=== PATIENT | female | born 1965 | race Caucasian/White ===

== ENCOUNTER 2017-10-21 12:05 | Emergency (ER) | payer BC, SELFPAY | END 2017-10-21 14:03 | disposition home or self-care (01) | PROVIDERS: Emergency Provider Nurse Practitioner Family; Visit Provider Nurse Practitioner Family | DX: M54.5 Low back pain (principal); Z88.0 Allergy status to penicillin; F41.8 Other specified anxiety disorders | CPT/HCPCS: 81003; 87086; 99201 ==

== ENCOUNTER → 2018-09-18 18:36 | Outpatient (CLI) | payer SELFPAY | PROVIDERS: PCP Internal Medicine; Visit Provider Nurse Practitioner Psychiatric/Mental Health | DX: Z79.899 Other long term (current) drug therapy (principal); F33.2 Major depressive disorder, recurrent severe without psychotic features ==

== ENCOUNTER 2022-11-27 15:01 | Emergency (ER) | payer BC, SELFPAY ==
[2022-11-27 15:15] VITALS: BP 121/86; PULSE 80; RESP 20; TEMP 36.8; O2SAT 98; BMI 32.6
--- NOTE | 2022-11-27 15:31 | EXP.UTC ---
Discharge Plan Disposition Patient Disposition: Home, Self-Care Condition: Good Prescriptions Prescriptions: New phenazopyridine [Pyridium] 200 mg tablet 200 mg PO Q8H 2 Days Qty: 6 0RF sulfamethoxazole-trimethoprim [Bactrim DS] 800-160 mg Tablet 1 tab PO BID Qty: 14 0RF No Action alprazolam [Xanax] 0.25 mg tablet 0.25 mg PO QHS PRN pantoprazole [Protonix] 40 mg tablet,delayed release (DR/EC) 40 mg PO DAILY Vyvanse 30 mg capsule 30 mg PO DAILY Qty: 30 0RF venlafaxine [Effexor XR] 150 mg capsule,extended release 24hr 150 mg PO DAILY Qty: 30 1RF Referrals Follow up/Referrals: Miladis Guillaume [Primary Care Provider] - See instructions Activity Restrictions/Add. Instructions Additional Instructions/Restrictions: Drink plenty of fluids. Take tylenol or ibuprofen for pain or fever. Take the medications as directed. Follow up with your regular doctor. GO TO THE ER FOR ANY WORSENING SYMPTOMS The pyridium will make your urine turn orange, this is an expected side effect. It will stain your clothes if it comes into contact with them. We will culture the urine. That will tell what bacteria is causing your infection and which antibiotics will treat it best. Sometimes the first antibiotic we prescribe turns out to not work against different bacteria. So, make sure you follow up within 3 days if you are not getting better. Clinical Impressions Clinical Impression: UTI (urinary tract infection), Acute viral syndrome Stand Alone Forms Stand Alone Forms: Work/School Release Instructions Patient Instructions: Urine Culture, DI for Urinary Tract Infection (UTI), Phenazopyridine Discharge ED Provider: Zak Rodrigez [facility] General Stated complaint: Weakness,Earache,Diarrhea Mode of Arrival: Ambulatory Source of Information: Patient Limitations: No Limitations Time Seen by Provider: 11/27/22 15:25 Description of Symptoms (Recalled from Triage Doc. by RN): nasuea, diarrhea, pressure, fatigue, body aches. She also states that she has had urinary frequency and dysuria. HEENT Symptoms (Recalled from RN notes): Yes Resp Symptoms (Recalled from RN notes): No Skin Symptoms (Recalled from RN notes): No MS Symptoms (Recalled from RN notes): No Functional Status (Recalled from RN notes): n/a History of Present Illness Provider Complaint: She states that for the past 3 days she has had sinus congestion, ear pain, and a cough. Related Data Home Medications Medication Instructions Recorded Confirmed alprazolam 0.25 mg tablet (Xanax) 0.25 mg PO QHS PRN 12/11/19 08/25/22 pantoprazole 40 mg tablet,delayed 40 mg PO DAILY 12/11/19 08/25/22 release (Protonix) Previous Rx's Medication Instructions Recorded lisdexamfetamine 30 mg capsule 30 mg PO DAILY #30 caps 10/27/22 (Vyvanse) venlafaxine 150 mg 150 mg PO DAILY #30 caps 10/27/22 capsule,extended release 24 hr (Effexor XR) phenazopyridine 200 mg tablet 200 mg PO Q8H 2 days #6 tabs 11/27/22 (Pyridium) sulfamethoxazole 800 1 tab PO BID #14 tabs 11/27/22 mg-trimethoprim 160 mg tablet (Bactrim DS) Allergies Allergy/AdvReac Type Severity Reaction Status Date / Time erythromycin base Allergy Intermediate Verified 11/27/22 15:24 [ERYTHROMYCIN BASE] Penicillins [PENICILLINS] Allergy Intermediate Verified 11/27/22 15:24 Worker's Comp Is this a Worker's Comp case?: No [facility] Disclaimer: The information contained in this section may have been updated after the patient was seen, as this information can be updated by other users. Medical History (Updated 11/27/22 @ 16:00 by Zak Rodrigez APRN) Attention deficit disorder (ADD) in adult Major depressive disorder Social History (Updated 08/25/22 @ 10:02 by Romana Holloway APRN) Smoking Status: Current every day smoker tobacco type: cigarettes packs per day: 1 alcohol intake: current substance use type: denies use current occupation
[2022-11-27 15:44] LABS: Apearance,Urine Clear (Clear); Bilirubin,Urine Negative (Negative); Blood, Urine Negative (Negative); Color,Urine Yellow (Yellow); Glucose,Urine (UA) Negative (Negative); Ketones,Urine Negative (Negative); PH,Urine 6.5 (5.0-8.5); Protein,Urine Negative (Negative); UTC Leukocyte Esterase,Urine Trace (Negative); UTC Nitrate,Urine Negative (Negative); Urobilinogen,Urine 0.2 EU/dl (0.2)
[2022-11-27 16:15] VITALS: BP 121/86; PULSE 80; RESP 20; TEMP 36.8; O2SAT 98
[2022-11-27 19:04] LABS: UTC Strep Screen (Rapid) Negative (Negative)
== END 2022-11-27 16:14 | disposition home or self-care (01) ==
PROVIDERS: Emergency Provider Nurse Practitioner Family; PCP Internal Medicine
DX: N39.0 Urinary tract infection, site not specified (principal); B34.9 Viral infection, unspecified
CPT/HCPCS: 81003; 87086; 87880; 99212; 99214; C9803; G0463; U0003; U0005

== ENCOUNTER 2023-02-11 11:43 | Emergency (ER) | payer BC, SELFPAY ==
[2023-02-11 11:45] VITALS: BP 137/77; PULSE 69; RESP 18; TEMP 36.8; O2SAT 98; BMI 34.4
--- NOTE | 2023-02-11 12:05 | EXP.UTC ---
Discharge Plan Disposition Patient Disposition: Home, Self-Care Condition: Good Prescriptions Prescriptions: New azithromycin [Zithromax Z-Maxi] 250 mg tablet See Rx Instructions .ROUTE .COMPLEX Qty: 6 0RF Rx Instructions: For 250 mg dose pack: take 500 mg today (day 1), then 250 mg for 4 days (days 2-5). Pt states that she has no allergy issues with Z-maxi. No Action alprazolam [Xanax] 0.25 mg tablet 0.25 mg PO QHS PRN (Reason: Anxiety) pantoprazole [Protonix] 40 mg tablet,delayed release (DR/EC) 40 mg PO DAILY venlafaxine [Effexor XR] 150 mg capsule,extended release 24hr 150 mg PO DAILY Vyvanse 30 mg capsule 30 mg PO DAILY Referrals Follow up/Referrals: Provider,Referral, MD [Primary Care Provider] - See instructions Clinical Impressions Clinical Impression: Strep pharyngitis Instructions Patient Instructions: DI for Strep Throat Discharge ED Provider: Georgiana Wei [facility] General Stated complaint: Congestion, drainage, cough, sore throat Mode of Arrival: Ambulatory Source of Information: Patient Limitations: No Limitations Time Seen by Provider: 02/11/23 11:54 Description of Symptoms (Recalled from Triage Doc. by RN): PATIENT C/O SORE THROAT, CONGESTION, HEADACHE, EAR PAIN AND FACIAL PRESSURE X 2 DAYS HEENT Symptoms (Recalled from RN notes): Yes Resp Symptoms (Recalled from RN notes): No Skin Symptoms (Recalled from RN notes): No MS Symptoms (Recalled from RN notes): No Functional Status (Recalled from RN notes): WNL History of Present Illness Provider Complaint: Pt reports that she was cleaning things out in her mother's home and the dust stirred up her sinus' . She reports that she has had congestion, sore throat, earache, and facial pressure since last night. She states that she took some OTC medication but this did not help. She states that she smokes and feels that this has made her symptoms worsen. She reports wheezing on occassion. Related Data Home Medications Medication Instructions Recorded Confirmed alprazolam 0.25 mg tablet (Xanax) 0.25 mg PO QHS PRN Anxiety 12/11/19 02/11/23 pantoprazole 40 mg tablet,delayed 40 mg PO DAILY Acid reflux 12/11/19 02/11/23 release (Protonix) lisdexamfetamine 30 mg capsule 30 mg PO DAILY ADHD 02/11/23 02/11/23 (Vyvanse) venlafaxine 150 mg 150 mg PO DAILY Anxiety 02/11/23 02/11/23 capsule,extended release 24 hr (Effexor XR) Previous Rx's Medication Instructions Recorded azithromycin 250 mg tablet See Rx Instructions PO .COMPLEX #6 02/11/23 (Zithromax Z-Maxi) tabs Allergies Allergy/AdvReac Type Severity Reaction Status Date / Time erythromycin base Allergy Intermediate Verified 11/27/22 15:24 [ERYTHROMYCIN BASE] Penicillins [PENICILLINS] Allergy Intermediate Verified 11/27/22 15:24 Worker's Comp Is this a Worker's Comp case?: No [facility] Disclaimer: The information contained in this section may have been updated after the patient was seen, as this information can be updated by other users. Medical History (Updated 02/11/23 @ 12:39 by Georgiana Wei APRN) Attention deficit disorder (ADD) in adult Major depressive disorder Social History (Updated 08/25/22 @ 10:02 by Romana Holloway APRN) Smoking Status: Current every day smoker tobacco type: cigarettes packs per day: 1 alcohol intake: current substance use type: denies use current occupational status: employed Travel in the last 8 weeks: None number of children: 2 ROS Obtained: Yes All systems reviewed & no additional complaints except as documented Constitutional Constitutional: Reports system reviewed and no additional complaints, except as documented, Reports headache(s) and Reports malaise Eyes Eyes: Reports system reviewed and no additional complaints, except as documented ENT Ears, Nose, Mouth, and Throat: Reports system reviewed and no additional complaints, except as documented, Reports otalgia, R
[2023-02-11 12:15] LABS: UTC Strep Screen (Rapid) Positive (Negative)
[2023-02-11 12:16] VITALS: BP 137/77; PULSE 69; RESP 18; TEMP 36.8; O2SAT 98
== END 2023-02-11 12:44 | disposition home or self-care (01) ==
PROVIDERS: Emergency Provider Nurse Practitioner Family
DX: J02.0 Streptococcal pharyngitis (principal); F17.210 Nicotine dependence, cigarettes, uncomplicated
CPT/HCPCS: 87880; 99212; 99214; G0463

== ENCOUNTER 2023-02-13 12:15 | Emergency (ER) | payer BC, SELFPAY ==
[2023-02-13 12:40] VITALS: BP 137/84; PULSE 92; RESP 20; TEMP 36.7; O2SAT 96; BMI 31.3
--- NOTE | 2023-02-13 13:03 | EXP.UTC ---
Discharge Plan Disposition Patient Disposition: Home, Self-Care Condition: Good Prescriptions Prescriptions: New doxycycline hyclate [doxycycline hyclate] 100 mg capsule 100 mg PO Q12 10 Days Qty: 20 0RF prednisone [prednisone] 20 mg tablet 20 mg PO BID 5 Days Qty: 10 0RF benzonatate [benzonatate] 100 mg capsule 100 mg PO TIDP PRN (Reason: Cough) Qty: 30 0RF No Action alprazolam [Xanax] 0.25 mg tablet 0.25 mg PO QHS PRN (Reason: Anxiety) pantoprazole [Protonix] 40 mg tablet,delayed release (DR/EC) 40 mg PO DAILY venlafaxine [Effexor XR] 150 mg capsule,extended release 24hr 150 mg PO DAILY Vyvanse 30 mg capsule 30 mg PO DAILY azithromycin [Zithromax Z-Maix] 250 mg tablet See Rx Instructions .ROUTE .COMPLEX Rx Instructions: For 250 mg dose pack: take 500 mg today (day 1), then 250 mg for 4 days (days 2-5). Pt states that she has no allergy issues with Z-maxi. Referrals Follow up/Referrals: Panda Araiza [Primary Care Provider] - See instructions Activity Restrictions/Add. Instructions Additional Instructions/Restrictions: Drink plenty of fluids. Take tylenol or ibuprofen for pain or fever. Take the medications as directed. Follow up with your regular doctor. GO TO THE ER FOR ANY WORSENING SYMPTOMS Don't start the oral steroids until tomorrow, since you had the shot here today. Clinical Impressions Clinical Impression: Sinusitis, Strep throat, Bronchitis Instructions Patient Instructions: Sinusitis, DI for Sinusitis Discharge ED Provider: Zak Rodrigez [facility] General Stated complaint: congestion,cough Time Seen by Provider: 02/13/23 13:03 History of Present Illness Provider Complaint: She states that for the past 2 days she has had chest congestion, sinus congestion, productive cough with yellowish sputum and she has felt bad. Related Data Home Medications Medication Instructions Recorded Confirmed alprazolam 0.25 mg tablet (Xanax) 0.25 mg PO QHS PRN Anxiety 12/11/19 02/13/23 pantoprazole 40 mg tablet,delayed 40 mg PO DAILY Acid reflux 12/11/19 02/13/23 release (Protonix) lisdexamfetamine 30 mg capsule 30 mg PO DAILY ADHD 02/11/23 02/13/23 (Vyvanse) venlafaxine 150 mg 150 mg PO DAILY Anxiety 02/11/23 02/13/23 capsule,extended release 24 hr (Effexor XR) azithromycin 250 mg tablet See Rx Instructions .Route 02/13/23 02/13/23 (Zithromax Z-Maxi) .COMPLEX strep Previous Rx's Medication Instructions Recorded benzonatate 100 mg capsule 100 mg PO TIDP PRN Cough #30 caps 02/13/23 doxycycline hyclate 100 mg capsule 100 mg PO Q12 10 days #20 caps 02/13/23 prednisone 20 mg tablet 20 mg PO BID 5 days #10 tabs 02/13/23 Allergies Allergy/AdvReac Type Severity Reaction Status Date / Time erythromycin base Allergy Intermediate Verified 02/13/23 13:10 [ERYTHROMYCIN BASE] Penicillins [PENICILLINS] Allergy Intermediate Verified 02/13/23 13:10 [facility] Disclaimer: The information contained in this section may have been updated after the patient was seen, as this information can be updated by other users. Medical History Attention deficit disorder (ADD) in adult Major depressive disorder Social History Smoking Status: Current every day smoker tobacco type: cigarettes packs per day: 1 alcohol intake: current substance use type: denies use current occupational status: employed Travel in the last 8 weeks: None number of children: 2 ROS Obtained: Yes All systems reviewed & no additional complaints except as documented Constitutional Constitutional: Denies chills, Reports fever(s) and Reports poor appetite Eyes Eyes: Denies eye discharge ENT Ears, Nose, Mouth, and Throat: Denies ear discharge, Reports otalgia, Denies hearing loss, Denies sinus pain and Reports sore throat Cardiovascular Car
--- NOTE | 2023-02-13 13:52 | PC.NURSE ---
Spoke with pt about rocephin shot being a associated to PCN. She has allergy to PCN. She states that she has taken before and has not issues.
[2023-02-13 14:04] VITALS: BP 137/84; PULSE 92; RESP 20; TEMP 36.7; O2SAT 96
== END 2023-02-13 14:04 | disposition home or self-care (01) ==
PROVIDERS: Emergency Provider Nurse Practitioner Family; PCP Family Medicine
DX: J02.0 Streptococcal pharyngitis (principal); J20.9 Acute bronchitis, unspecified; J01.90 Acute sinusitis, unspecified; F17.210 Nicotine dependence, cigarettes, uncomplicated
CPT/HCPCS: 96372; 99212; 99214; G0463; J0696

== ENCOUNTER 2023-09-02 16:54 | Emergency (ER) | payer BC, SELFPAY ==
[2023-09-02 17:10] VITALS: BP 130/90; PULSE 115; RESP 18; TEMP 36.7; O2SAT 96; BMI 30.6
[2023-09-02 17:13] LABS: Apearance,Urine Cloudy (Clear); Color,Urine Dark Yellow (Yellow); PH,Urine 5.5 (5.0-8.5); Protein,Urine 3+ (Negative)
[2023-09-02 17:14] LABS: Bilirubin,Urine 1+ (Negative); Blood, Urine Trace (Negative); Glucose,Urine (UA) Negative (Negative); Ketones,Urine TRACE (Negative); UTC Leukocyte Esterase,Urine Negative (Negative); UTC Nitrate,Urine Negative (Negative); Urobilinogen,Urine 0.2 EU/dl (0.2)
--- NOTE | 2023-09-02 17:30 | EXP.UTC ---
Discharge Plan Disposition Patient Disposition: Home, Self-Care Condition: Good Prescriptions Prescriptions: New cephalexin [cephalexin] 500 mg tablet 500 mg PO BID 7 Days Qty: 14 0RF No Action alprazolam [Xanax] 0.25 mg tablet 0.25 mg PO QHS PRN (Reason: Anxiety) pantoprazole [Protonix] 40 mg tablet,delayed release (DR/EC) 40 mg PO DAILY venlafaxine [Effexor XR] 150 mg capsule,extended release 24hr 150 mg PO DAILY Qty: 90 0RF lisdexamfetamine [Vyvanse] 30 mg capsule 30 mg PO DAILY Qty: 30 0RF Referrals Follow up/Referrals: Miladis Guillaume [Primary Care Provider] - See instructions Activity Restrictions/Add. Instructions Additional Instructions/Restrictions: Increase fluids, water and not soda or tea. Can drink cranberry juice or cranberry extract. Wipe front to back Wear cotton underwear Empty bladder after intercourse Start antibiotics immediately and make sure you take the full course although you may start to see improvement over the next 48 hours. You can eat yogurt or take probiotics to decrease diarrhea or yeast infection caused by the antibiotic Be sure to follow-up anytime for new or worsening symptoms in 48 hours for wound urine culture results be sure to let you PCP no recent urine for culture so they can request records and ensure that you have appropriate antibiotic if you are not getting better or getting worse. If symptoms worsen or do not improve return or be seen in the ER. Follow-up with primary care this week. Clinical Impressions Clinical Impression: Upper respiratory disease UTI (urinary tract infection) Qualifiers: Urinary tract infection type: acute cystitis Hematuria presence: with hematuria Qualified Code(s): N30.01 - Acute cystitis with hematuria Instructions Patient Instructions: DI for Urinary Tract Infection (UTI), DI for Viral Upper Respiratory Infection -- Adult Discharge ED Provider: Vimal ([facility])Frida [facility] HPI General Stated complaint: poss UTI, ear ache Mode of Arrival: Ambulatory Source of Information: Patient Limitations: No Limitations Time Seen by Provider: 09/02/23 17:30 Description of Symptoms (Recalled from Triage Doc. by RN): ear infection, diarrhea, LUO, fatigue, no appetite, urgency to urinate, and burning with urination HEENT Symptoms (Recalled from RN notes): Yes Resp Symptoms (Recalled from RN notes): No Skin Symptoms (Recalled from RN notes): No MS Symptoms (Recalled from RN notes): No Functional Status (Recalled from RN notes): n/a History of Present Illness Provider Complaint: 58 yr old female presents for c/o of ear infection, diarrhea, LUO, fatigue, no appetite, urgency to urinate, and burning with urination Related Data Home Medications Medication Instructions Recorded Confirmed alprazolam 0.25 mg tablet (Xanax) 0.25 mg PO QHS PRN Anxiety 12/11/19 09/02/23 pantoprazole 40 mg tablet,delayed 40 mg PO DAILY Acid reflux 12/11/19 09/02/23 release (Protonix) Previous Rx's Medication Instructions Recorded venlafaxine 150 mg 150 mg PO DAILY Anxiety #90 caps 06/01/23 capsule,extended release 24 hr (Effexor XR) lisdexamfetamine 30 mg capsule 30 mg PO DAILY ADHD #30 caps 07/13/23 (Vyvanse) cephalexin 500 mg tablet 500 mg PO BID 7 days #14 tabs 09/02/23 Allergies Allergy/AdvReac Type Severity Reaction Status Date / Time erythromycin base Allergy Intermediate Verified 09/02/23 17:23 [ERYTHROMYCIN BASE] Penicillins [PENICILLINS] Allergy Intermediate Verified 09/02/23 17:23 Worker's Comp Is this a Worker's Comp case?: No [facility] Disclaimer: The information contained in this section may have been updated after the patient was seen, as this information can be updated by other users. Medical History , [employer]) Attention deficit disorder (ADD) in adult Major depressive disorder Social History , A
[2023-09-02 17:41] LABS: UTC Strep Screen (Rapid) Negative (Negative)
[2023-09-02 17:42] LABS: UTC Influenza A Antigen Negative (Negative); UTC Influenza B Antigen Negative (Negative)
[2023-09-02 17:43] VITALS: BP 130/90; PULSE 115; RESP 18; TEMP 36.7; O2SAT 96
== END 2023-09-02 17:43 | disposition home or self-care (01) ==
PROVIDERS: Emergency Provider Nurse Practitioner Family; PCP Internal Medicine
DX: N30.01 Acute cystitis with hematuria (principal); J06.9 Acute upper respiratory infection, unspecified; B34.9 Viral infection, unspecified; H92.03 Otalgia, bilateral; R19.7 Diarrhea, unspecified; R51.9 Headache, unspecified; F17.210 Nicotine dependence, cigarettes, uncomplicated; F90.9 Attention-deficit hyperactivity disorder, unspecified type; F33.9 Major depressive disorder, recurrent, unspecified
CPT/HCPCS: 81003; 87086; 87635; 87804; 87880; 99212; 99214; G0463

== ENCOUNTER 2024-06-23 08:59 | Emergency (ER) | payer BC, SELFPAY ==
[2024-06-23 09:19] VITALS: BP 124/81; PULSE 94; RESP 16; TEMP 36.6; O2SAT 97; BMI 32.1
[2024-06-23 09:23] LABS: Apearance,Urine Clear (Clear); Bilirubin,Urine Negative (Negative); Blood, Urine Trace (Negative); Color,Urine Yellow (Yellow); Glucose,Urine (UA) Negative (Negative); Ketones,Urine Negative (Negative); Protein,Urine Negative (Negative); Urobilinogen,Urine 0.2 EU/dl (0.2)
[2024-06-23 09:24] LABS: UTC Leukocyte Esterase,Urine Negative (Negative); UTC Nitrate,Urine Negative (Negative)
--- NOTE | 2024-06-23 09:55 | EXP.UTC ---
Discharge Plan Disposition Patient Disposition: Home, Self-Care Condition: Good Prescriptions Prescriptions: New nystatin 100,000 unit/gram cream 1 applic topical BID 7 Days Qty: 30 0RF phenazopyridine [Pyridium] 200 mg tablet 200 mg PO Q8H 2 Days Qty: 6 0RF nitrofurantoin monohyd/m-cryst [Macrobid] 100 mg Capsule 100 mg PO BID Qty: 10 0RF Rx Instructions: must administer with a meal/food No Action pantoprazole [Protonix] 40 mg tablet,delayed release (DR/EC) 40 mg PO DAILY venlafaxine [Effexor XR] 150 mg capsule,extended release 24hr 150 mg PO DAILY Qty: 90 0RF alprazolam [Xanax] 0.25 mg tablet 0.25 mg PO QHS PRN (Reason: Anxiety) Qty: 30 0RF lisdexamfetamine [Vyvanse] 30 mg capsule 30 mg PO DAILY Qty: 30 0RF Referrals Follow up/Referrals: Miladis Guillaume [Primary Care Provider] - See instructions Activity Restrictions/Add. Instructions Additional Instructions/Restrictions: Drink plenty of fluids. Take tylenol or ibuprofen for pain or fever. Take the medications as directed. Follow up with your regular doctor. GO TO THE ER FOR ANY WORSENING SYMPTOMS The pyridium will make your urine turn orange, this is an expected side effect. It will stain your clothes if it comes into contact with them. We will culture the urine. That will tell what bacteria is causing your infection and which antibiotics will treat it best. Sometimes the first antibiotic we prescribe turns out to not work against different bacteria. So, make sure you follow up within 3 days if you are not getting better. Clinical Impressions Clinical Impression: UTI (urinary tract infection) Qualifiers: Urinary tract infection type: acute cystitis Hematuria presence: with hematuria Qualified Code(s): N30.01 - Acute cystitis with hematuria Instructions Patient Instructions: Urine Culture, DI for Urinary Tract Infection (UTI), Phenazopyridine, Ceftriaxone Injection Print Language Print Language: Wolof Discharge ED Provider: Zak Rodrigez [facility] [place] General Stated complaint: Pain/frequent urination Mode of Arrival: Ambulatory Source of Information: Patient Limitations: No Limitations Time Seen by Provider: 06/23/24 09:55 Description of Symptoms (Recalled from Triage Doc. by RN): Pt reports burning with urination and pain with wiping after urination. States symptoms began 06/20/24 HEENT Symptoms (Recalled from RN notes): No Resp Symptoms (Recalled from RN notes): No Skin Symptoms (Recalled from RN notes): No MS Symptoms (Recalled from RN notes): No Functional Status (Recalled from RN notes): n/a History of Present Illness Provider Complaint: She states that for the past 2 days she has had low back pain, dysuria, and urinary frequency. Related Data Home Medications ?Medication ?Instructions ?Recorded ?Confirmed pantoprazole 40 mg tablet,delayed 40 mg PO DAILY Acid reflux 12/11/19 05/13/24 release (Protonix) Previous Rx's ?Medication ?Instructions ?Recorded alprazolam 0.25 mg tablet (Xanax) 0.25 mg PO QHS PRN Anxiety #30 tabs 04/15/24 venlafaxine 150 mg 150 mg PO DAILY Anxiety #90 caps 05/13/24 capsule,extended release 24 hr (Effexor XR) lisdexamfetamine 30 mg capsule 30 mg PO DAILY ADHD #30 caps 06/11/24 (Vyvanse) nitrofurantoin 100 mg PO BID #10 caps 06/23/24 monohydrate/macrocrystals 100 mg capsule (Macrobid) nystatin 100,000 unit/gram topical 1 applic topical BID 7 days #30 06/23/24 cream grams phenazopyridine 200 mg tablet 200 mg PO Q8H 2 days #6 tabs 06/23/24 (Pyridium) Allergies Allergy/AdvReac Type Severity Reaction Status Date / Time erythromycin base Allergy Intermediate Verified 05/13/24 09:41 [ERYTHROMYCIN BASE] Penicillins [PENICILLINS] Allergy Intermediate Verified 05/13/24 09:41 Worker's Comp Is this a Worker's Comp case?: No [facility] Disclaimer: The information contained in this section may have been updated after the patient
[2024-06-23 10:28] VITALS: BP 124/81; PULSE 94; RESP 16; TEMP 36.6; O2SAT 97
== END 2024-06-23 10:28 | disposition home or self-care (01) ==
PROVIDERS: Emergency Provider Nurse Practitioner Family; PCP Internal Medicine
DX: N30.01 Acute cystitis with hematuria (principal); M54.59 Other low back pain; R30.0 Dysuria; R35.0 Frequency of micturition
CPT/HCPCS: 81003; 87086; 96372; 99212; 99214; G0463; J0696

== ENCOUNTER 2025-01-01 15:24 | Outpatient (CLI) | payer BC, SELFPAY ==
[2025-01-01 15:44] LABS: Basophils % 0.3 % (0.1-2.0); Hematocrit 43.7 % (37.0-47.0); Hemoglobin 14.5 g/dL (12.2-16.2); Lymphocytes # 1.3 K/mm3 (0.7-4.5); Lymphocytes % 10.8 % (10-50); Mean Corpuscular HGB Conc 33.2 g/dL (31.8-35.4); Mean Corpuscular Hemoglobin 30.4 pg (27.0-31.2); Mean Corpuscular Volume 91.6 fl (81-99); Mean Platelet Volume 9.8 fl (7.4-10.4); Monocytes # 0.1 K/mm3 (0.1-1.0); Monocytes % 0.9 % (1.7-9.3); Neutrophils # 10.2 K/mm3 (1.8-7.8); Neutrophils % 87.4 % (37.0-80.0); Platelet Count 366 K/mm3 (142-424); Red Blood Count 4.77 M/mm3 (4.20-5.40); Red Cell Distribution Width 14.2 % (11.5-17.5); White Blood Count 11.7 K/mm3 (4.8-10.8)
[2025-01-01 16:40] LABS: Anion Gap 13.4 mEq/L (5-15); Blood Urea Nitrogen 13 mg/dl (7-17); Calcium 9.7 mg/dl (8.4-10.2); Carbon Dioxide 23 mmol/L (22.0-30.0); Chloride 108 mmol/L (98-107); Estimated Glomerular Filt Rate 127 ml/min (>60); GFR (African American) 154 ML/MIN (>60); Glucose 131 mg/dl (74-100); Potassium 4.4 mmoL/L (3.5-5.1); Sodium 140 mmol/L (136-145)
== END 2025-01-01 23:59 | disposition home or self-care (01) ==
LOC: LAB 15:25
PROVIDERS: PCP Nurse Practitioner Family; Visit Provider Nurse Practitioner
DX: G93.39 Other post infection and related fatigue syndromes (principal)
CPT/HCPCS: 36415; 80048; 85025

== ENCOUNTER 2025-07-15 08:00 | Outpatient (CLI) | payer OTHER, SELFPAY ==
--- NOTE | 2025-07-15 08:03 | MM_ITS ---
PROCEDURE INFORMATION: Exam: MG Bilateral Screening 3D Mammography Exam date and time: 07/15/2025 8:05 AM Age: 60 years old Clinical indication: Screening. No family history of breast cancer. TECHNIQUE: Imaging protocol: Bilateral Screening tomosynthesis and 2D mammography including computer-aided detection (CAD) when performed. COMPARISON: 1. MG SCN DIG BREAST TOMOSYN RICARDO 12/22/2023 4:42 PM 2. MG Stereo Biopsy, RCC 09/29/2022 10:10 AM 3. MG ALYSA DIAG UNILAT RT 2D 3D-FCH 09/08/2022 1:57 PM 4. MG MAMM SCREENING 2D 3D 09/01/2022 3:32 PM MG MAMM SCREENING 2D 3D 08/30/2019 FINDINGS: MAMMOGRAPHY: Breast composition: The breasts are heterogeneously dense, which may obscure small masses. Mass: No suspicious mass. Architectural distortion: None. Calcifications: No suspicious calcifications. Asymmetric density: None. Skin thickening: None. Axillary adenopathy: None. IMPRESSION: No mammographic evidence of malignancy. Annual screening is recommended unless otherwise clinically indicated. ASSESSMENT: BI-RADS Category 1: Negative.
--- OUTSIDE RECORDS SUMMARY | 2025-07-15 08:03 | XMS_ITS | Clinical Summary ---
Author Organization [facility] OD Address [facility] [place] [id number] Phone Care Team Providers Care Senior Consulting Manager Name Role Phone Unavailable Primary Care Provider Unavailabl e Allergies Active Allergy Reactions Criticality Noted Date Comments Erythromycin Hives,Rash Low 04/09/2025 Penicillins Hives,Itching,Rash Low 07/20/2008 Product containing penicillin (product) Medications ALPRAZolam (XANAX) 0.25 mg Oral Tablet TAKE 1 TABLET BY MOUTH EVERY DAY AT BEDTIME NEEDED FOR ANXIETY Active albuterol (VENTOLIN HFA) 90 mcg/actuation Inhl HFA Aerosol Inhaler INHALE 1 PUFF BY MOUTH NEEDED Active clobetasoL (TEMOVATE) 0.05 % Top Ointment APPLY ONE (1) APPLICATION TWICE A DAY BY TOPICAL ROUTE DIRECTED 5 Active clotrimazole-be tamethasone (LOTRISONE) Top Cream APPLY CREAM TOPICALLY TO AFFECTED AREA AND SURROUNDING AREAS TWICE DAILY IN THE MORNING AND IN THE EVENING FOR 2 WEEKS Active ergocalciferol (DRISDOL) 1,250 mcg (50,000 unit) Oral Capsule Take 50,000 Units by mouth once a week. 5 Active PREMARIN Vagl Cream INSERT ONE (1) G EVERY 72 HOURS BY VAGINAL ROUTE Active fluconazole (DIFLUCAN) 150 mg Oral Tablet TAKE ONE (1) TABLET EVERY WEEK BY ORAL ROUTE DIRECTED FOR 28 DAYS. Active fluticasone propionate (FLOVENT) 44 mcg/actuation Inhl HFA Aerosol Inhaler Inhale 2 puffs twice a day by inhalation route for 30 days. Active Lisdexamfetamin e 40 mg Oral Capsule Take 1 Capsule by mouth daily. Active pantoprazole (PROTONIX) 40 mg Oral Tablet, Delayed Release (E.C.) Take 40 mg by mouth daily. Active venlafaxine (EFFEXOR-XR) 150 mg Oral Capsule, Sust. Release 24 hr TAKE 1 CAPSULE BY MOUTH ONCE DAILY FOR ANXIETY 9 Active Social History Tobacco Use Types Packs/Day Years Used Date Smoking Tobacco: Never Assessed Comments Unknown Sex and Gender Information Value Date Recorded Sex Assigned at Not on file Legal Sex Female 8:19 AM EDT Gender Identity Not on file Sexual Orientation Not on file Plan of Treatment Health Maintenance Due Date Last Done Comments Annual Wellness Exam 1970 DTaP/TDaP/Td (1 - Tdap) 1986 Hepatitis B Vaccine (1 of 3 - 19+ 3-dose series) 1986 Cervical Cancer Screening 1988 Pap Smear 1988 HPV/Pap Cotest 1997 Breast Cancer Screening 2007 Cologuard 2012 Colon Cancer Screening 2012 Colonoscopy 2012 FIT 2012 Sigmoidoscopy 2012 Virtual Colonography 2012 Pneumococcal Vaccine 50+ (1 of 1 - PCV) 2017 Zoster (1 of 2) 2017 COVID-19 Vaccine (3 - 2024-2 6 season) 2025 04/13/2021, 03/16/2021 Influenza Vaccine (#1) 2025 08/13/2021 Meningococcal B Vaccine Aged Out No l onger eligible based on patient's age to complete this topic [place] [address] [address] [employer] [place] [address] [address] [employer] on file [employer] [place] * Guarantor: BENY TY Account Type Relation to Patient Date of Phone Billing Address [place] [employer] 1965 [address] [place] [id number] [employer] [facility] [place]
--- OUTSIDE RECORDS SUMMARY | 2025-07-15 08:03 | XMS_ITS | Clinical Summary ---
Author Organization [facility] Address [address] [place] [id number] Care Team Providers Care Express Clerk Name Role Phone Miladis Guillaume MD Primary Care Provider + Allergies Active Allergy Reactions Criticality Noted Date Comments Penicillins Rash Low 05/31/2019 Medications buPROPion XL (WELLBUTRIN XL) 300 MG 24 hr tablet Take 300 mg by mouth Daily. 5 9 Active HM ALLERGY RELIEF/NASAL DECONG 10-240 MG per 24 hr tablet Take 1 tablet by mouth Daily. 5 9 Active phentermine (ADIPEX-P) 37.5 MG tablet Take 37.5 mg by mouth Daily. 0 9 Active venlafaxine XR (EFFEXOR-XR) 150 MG 24 hr capsule TAKE (1) CAPSULE BY MOUTH ONCE A DAY. 5 9 Active predniSONE (DELTASONE) 10 MG tabletIndications :Acute recurrent pansinusitis Take 2 tabs po now, then take 1 tab po daily until gone 5 tablet 9 Active Family History Medical History Relation Name Comments Heart disease Father Lung disease Father Cancer Mother colon Parkinsonism Mother Relation Name Status Comments Father Mother Alive Social History Tobacco Use Types Packs/Day Years Used Date Smoking Tobacco: Never Alcohol Use Standard Drinks/Week Comments Defer 0 (1 standard drink = 0.6 oz pur e alcohol) Abuse Screen Answer Date Recorded Unsafe at Home or Work/School Not on file Feels Threatened by Someone? Not on file 09/2023 Does Anyone Keep You from Co ntacting Others or Doint Things Outside the Home? Not on file 08/10/2023 Physical Sign of Abuse Present Not on file 1 Housing Stability Answer Date Recorded Current Living Arrangements Not on file 07/30 Potentially Unsafe Housing Conditions Not on sada e 08/10/2023 Family and Community Support Answer Tomy e Recorded Help with Day-to-Day Activities Not on file 08/10/2023 Lonely or Isolated Not on file 08/10/2023 Employment Answer Date Recorded Do you want help finding or keeping work or a abdulkadir b? Not on file 08/10/2023 Disabilities Answer Date Recorded Concentrating, Remembering, or Making Decisions Difficulty Not on file 08/10/2023 Doing Errands Independently Difficulty Not on fi le 08/10/2023 Education Answer Date Recorded Help with school or training? Not on file Preferred Language Not on file 08/10/2023 Comments No Sex and Gender Information Value Date Recorded Sex Assigned at Not on file Legal Sex Female 2:45 PM EDT Gender Identity Not on file Sexual Orientation Not on file Last Filed Vital Signs Vital Sign Reading Time Taken Comments Blood Pressure 118/76 05/31/2019 2:59 PM EDT Pulse 100 05/31/2019 2:59 PM EDT Temperature 36.3 C (97.3 F) 05/31/2019 2:59 PM EDT Respiratory Rate 20 05/31/2019 2:59 PM EDT Oxygen Saturation 96% 05/31/2019 2:59 PM EDT Inhaled Oxygen Concentration - - Weight 96.4 kg (212 lb 9.6 oz) 05/31/2019 2:59 P M EDT Height 172.7 cm (5' 8 ) 05/31/2019 2:59 PM EDT Body Mass Index 32.33 05/31/2019 2:59 PM EDT Plan of Treatment Health Maintenance Due Date Last Done Comments Annual Gynecologic Pelvic and Breast Exam 1965 TDAP/TD VACCINES (1 - Tdap) 1986 MAMMOGRAM 2007 COLOGUARD 2012 COLON CANCER SCREENING 5 YEAR SIGMOIDOSCOPY 2012 COLONOSCOPY 2012 [address] CANCER SCREENING 2012 CT COLONOGRAPHY 2012 FECAL OCCULT BLOOD TEST 2012 FIT Testing (1 year) 2012 Pneumococcal Vaccine 50+ (1 of 1 - PCV) 2017 ZOSTER VACCINE (1 of 2) 2017 ANNUAL PHYSICAL 05/31/2019 HEPATITIS C SCREENING 05/31/2019 COVID-19 Vaccine ( season) 2025 INFLUENZA VACCINE 07/30/2025 Insurance [facility] H[facility] Care Teams Express Clerk Relationship Specialty Start Date End Date Miladis Guillaume MD [address] [place] [address] PCP - General Internal Medicine 05/31/19
--- OUTSIDE RECORDS SUMMARY | 2025-07-15 08:04 | XMS_ITS | Referral Summary ---
Author Organization [employer] ([place], [place], [place], [place]) Address [address] [place] [address] Care Team Providers Care Newborn Photographer Name Role Phone Unavailable Primary Care Provider Unavailabl e Social History Tobacco Use Types Packs/Day Years Used Date Smoking Tobacco: Never Assessed Comments Unknown Sex and Gender Information Value Date Recorded Sex Assigned at Not on file Legal Sex Female 6:05 PM CDT Gender Identity Not on file Sexual Orientation Not on file Plan of Treatment Not on file
--- OUTSIDE RECORDS SUMMARY | 2025-07-15 08:04 | XMS_ITS | Clinical Summary ---
Author Organization [facility] ([place], [place], [place], [place]) Address [address] [place] [address] Care Team Providers Care Facsimile Operator Name Role Phone Unavailable Primary Care Provider [...]
--- OUTSIDE RECORDS SUMMARY | 2025-07-15 08:04 | XMS_ITS | Encounter Summary ---
Author Organization [employer] ([place], [place], [place], [place]) Address [address] [place] [address] Care Team Providers Care Author Agent Name Role Phone Unavailable Primary Care Provider Unavailabl e Encounter Details Date Type Department Care Team (Late st Contact Info) Description 03/30/2021 Transcribed Document [facility] [place] [facility] [place] [address] ProviderCarlos MD [facility] [place] [address] Social History Tobacco Use Types Packs/Day Years Used Date Smoking Tobacco: Never Assessed Comments Unknown Sex and Gender Information Value Date Recorded Sex Assigned at Not on file Legal Sex Female 6:05 PM CDT Gender Identity Not on file Sexual Orientation Not on file documented as of this encounter Miscellaneous Notes * Cerner Conversion Note - Carlos ProviderMD - 03/30/2021 1:47 AM CDT ED Discharge Entered On: 03/30/2021 1:47 EDT Performed On: 03/30/2021 1:47 EDT by Sybil Esteban NON EMP water team leader Process Patient Disposition : Discharge Personal Belongings With Patient : Yes Patient Education Completed : Yes Teaching Evaluation : Verbalizes understanding IV Discontinued : Yes Sybil Esteban NON EMP RN - 03/30/2021 1:47 EDT ED Discharge Discharge To : Home with ambulatory/outpatient follow-up Mode Of Departure : Private vehicle Discharge Instructions Reviewed With, Opportunity For Questions Given : Patient Sybil Esteban NON EMP RN - 03/30/2021 1:47 EDT documented in this encounter Plan of Treatment Not on file documented as of this encounter Visit Diagnoses Not on filedocumented in this encounter
--- OUTSIDE RECORDS SUMMARY | 2025-07-15 08:04 | XMS_ITS | Encounter Summary ---
Author Organization [employer] ([place], [place], [place], [place]) Address [address] [place] [address] Care Team Providers Care Customer Solutions Teammate Name Role Phone Unavailable Primary Care Provider Unavailabl e Encounter Details Date Type Department Care Team (Late st Contact Info) Description 03/29/2021 Transcribed Document [facility] [place] [place] Family Medicine [facility]ly [facility] [place] [address] ProviderCarlos MD [address] [place] [address] Social History Tobacco Use Types Packs/Day Years Used Date Smoking Tobacco: Never Assessed Comments Unknown Sex and Gender Information Value Date Recorded Sex Assigned at Not on file Legal Sex Female 6:05 PM CDT Gender Identity Not on file Sexual Orientation Not on file documented as of this encounter Miscellaneous Notes * Cerner Conversion Note - Historical ProviderMD - 03/29/2021 9:45 PM CDT [place] Suicide Severity Rating Scale (C-SSRS) Entered On: 03/29/2021 22:22 EDT Performed On: 03/29/2021 22:21 EDT by PETRA MITCHELL RN-PATIENT CARE BEDSIDE NON-EXEMPT [place] Suicide Severity Rating Scale (C-SSRS) CSSRS Past Month Wish to be : No CSSRS Past Month Suicidal Thoughts : No CSSRS Lifetime Suicide Behavior : No Suicide Severity Rating Score : 0 Suicide Severity Rating : No Additional Care Required at this time PETRA MITCHELL RN-PATIENT CARE BEDSIDE NON-EXEMPT - 03/29/2021 22:21 EDT documented in this encounter Plan of Treatment Not on file documented as of this encounter Visit Diagnoses Not on filedocumented in this encounter
--- OUTSIDE RECORDS SUMMARY | 2025-07-15 08:04 | XMS_ITS | Clinical Summary ---
Author Organization [facility] Address [address] [place] [id number] Care Team Providers Care Inspector Mechanical Name Role Phone Pcp, None MD Primary Care Provider [phone] Allergies Active Allergy Reactions Criticality Noted Date Comments Penicillins Rash 12/14/2024 Medications promethazine (PHENERGAN) 12.5 MG SUPP Unwrap and insert 1 suppository into the rectum every 8 (eight) hours as needed. 15 suppository 5 Active ondansetron (ZOFRAN-ODT) 4 MG TBDP Dissolve and swallow 1 tablet by mouth every 8 (eight) hours as needed. 20 tablet 5 Active dicyclomine (BENTYL) 20 MG TABS Take 1 tablet by mouth 3 (three) times daily as needed. 30 tablet 5 Active Social History Tobacco Use Types Packs/Day Years Used Date Smoking Tobacco: Never Smokeless Tobacco: Never Tobacco Cessation:Counseling Given: Not Answered Alcohol Use Standard Drinks/Week Comments Not Currently 0 (1 standard drink = 0.6 oz pur e alcohol) Comments Unknown Sex and Gender Information Value Date Recorded Sex Assigned at Not on file Legal Sex Female 5:54 AM EST Gender Identity Not on file Sexual Orientation Not on file Last Filed Vital Signs Vital Sign Reading Time Taken Comments Blood Pressure 131/73 02/20/2025 7:26 PM EDT Pulse 98 02/20/2025 7:26 PM EDT Temperature 36.7 C (98.1 F) 02/20/2025 7:26 PM EDT Respiratory Rate 20 02/20/2025 7:26 PM EDT Oxygen Saturation 99% 02/20/2025 7:26 PM EDT Inhaled Oxygen Concentration - - Weight 90.7 kg (200 lb) 12/14/2024 5:59 AM EST Height 165.1 cm (5' 5 ) 12/14/2024 5:59 AM EST Body Mass Index 33.28 12/14/2024 5:59 AM EST Plan of Treatment Health Maintenance Due Date Last Done Comments DTap,Tdap,and Td (1 - Tdap) 1978 Pap Screening 1988 Mammogram Screening 2007 Colonoscopy 2012 Pneumococcal 50+ (1 of 1 - PCV) 2017 Shingrix (#1) 2017 Influenza Vaccine (#1) 2025 08/13/2021 RSV Vaccine (60+ or ) (1 - 1-dose 75+ series) 2042 HPV Aged Out No longer eligi ble based on patient's age to complete this topic Meningococcal conjugate zully nt 4 (MCV4) Aged Out No longer eligible b ased on patient's age to complete this topic RSV Immunization (<20 months) Aged Out No longer eligible based on patient's age to complete this topic [facility] [place] [address] [facility] [place] [address] [place] [address] Care Teams Inspector Mechanical Relationship Specialty Start Date End Date Pcp, None, No Address [place], [place] PCP - General Internal Medicine 12/14/24
--- OUTSIDE RECORDS SUMMARY | 2025-07-15 08:04 | XMS_ITS | Patient Health Record ---
Author Organization [facility] Address [address] [place] [address] Care Team Providers Care Technical Internship Name Role Phone Prieto Guillaume Primary Care Provider Unavailab le Allergies Allergen (clinical drug ingredient) Drug/Non Drug Allergy documented on EMR Reaction Allergy Type Onset Date Status erythromycin Erythromycin rash Drug Allergy A ctive Penicillin rash Drug Allergy Active Reason For Referral No Information Medications Medication SIG (Take, Route, Frequency, Duration) Notes Start Date End Date Status Bactrim DS 800-160 MG 1 tab(s) orally 2 times a day; Duration: 10 day(s) 07/31/2017 Active Wellbutrin XL 150 MG 1 tab(s) orally every 24 hours Active Xanax 0.25 MG 1 tab(s) orally 3 times a day Active PROzac 20 MG 1 cap(s) orally once a day Active Pepcid 40 MG 1 tab(s) orally once a day (at bedtime) Active ZANTAC 150 150 MG 1 TAB(S) ORALLY 2 TIMES A DAY *Please review for potential replacement for e-prescription and drug interaction check* Active Mobic 7.5 MG 1 tab(s) orally once a day Active Claritin-D 12 Hour 5-120 MG 1 tab(s) orally every 12 hours Active Plan Of Treatment Pending Test Test Name Order Date Urine Culture and Sensitivity 07/31/2017 Insurance Providers Payer Name Payer Address Payer Phone Subscriber Number Group Number Insured Name Patient Relationship to Insured Coverage Start Date Coverage End Date [facility] [address] [place] [address] [id number] BENY TO Self - patient is the insured Medical (General) History Medical History History ICD Code Anxiety/Depression PTSD Osteoarthritis Surgical History Surgery Date(Month/Year) hafsa simmons D+C 2016 Hospitalization History Reason Date(Month/Year) childbirth see above
--- OUTSIDE RECORDS SUMMARY | 2025-07-15 08:04 | XMS_ITS | Encounter Summary ---
Author Organization [employer] ([place], [place], [place], [place]) Address [address] [place] [address] Care Team Providers Care Manager Of Quality Name Role Phone Unavailable Primary Care Provider Unavailabl e Encounter Details Date Type Department Care Team (Late st Contact Info) Description 03/30/2021 Transcribed Document [facility] [place] Family Medicine Formerly [facility] [place] [address] ProviderCarlos MD [address] [place] [address] Social History Tobacco Use Types Packs/Day Years Used Date Smoking Tobacco: Never Assessed Comments Unknown Sex and Gender Information Value Date Recorded Sex Assigned at Not on file Legal Sex Female 6:05 PM CDT Gender Identity Not on file Sexual Orientation Not on file documented as of this encounter Miscellaneous Notes * Cerner Conversion Note - Carlos ProviderMD - 03/30/2021 1:31 AM CDT [address] [place] [address] PERSON INFORMATION Name BENY TY Age 55 Years 1965 Sex Female Language Congolese PCP ROSINA LIMA (REF)MD-INT Marital Status Single Med Service Emergency Medicine Acct# Arrival 03/29/2021 21:45:00 Visit Reason Chest pain; Foreign body in throat; MEDICAL SCREEN Acuity 3 - Urgent LOS 000 03:46 Depart Date: 00:00 AM Address: [place] [address] Comment: PROVIDER INFORMATION Provider Role Assigned Unassigned JENNIFER MOREJON MD-EMR ED Physician 03/29/2021 21:53:33 PETRA MITCHELL, RN-PATIENT CARE BEDSIDE NON-EXEMPT ED Nurse 03/29/2021 22:01:03 Sybil Esteban NON EMP DISPATCHER [place] Nurse 03/29/2021 23:03:52 DIAGNOSIS Esophageal foreign body PHYS DOC NOTES VITALS INFORMATION Vital Sign Triage Latest Temp Source Oral Oral Temp Mode Fahrenheit Fahrenheit Temp Fahrenheit 97.9 Deg F 97.9 Deg F Temp Celsius 02 Sat 98 % 92 % Respiratory Rate 20 Breaths/Min 17 Breaths/Min Peripheral Pulse Rate 97 bpm 97 bpm Apical Heart Rate Blood Pressure 131 mmHg / 60 mmHg 147 mmHg / 63 mmHg Comment: MEDICAL INFORMATION Allergy Info: penicillin; erythromycin Medications: Comment: DISCHARGE INFORMATION Discharge Disposition: Discharge Location: PATIENT EDUCATION INFORMATION Instructions: Swallowed Foreign Body, Adult Follow up: With: Address: When: March [address] [facility], [address] [place] [address] Business (1) Within 1 to 2 weeks With: Address: When: ROSINA LIMA [address] [place] [address] Business (1) Within 2 to 3 days With: Address: When: Follow up with primary care provider Within 2 to 3 days Comment: documented in this encounter Plan of Treatment Not on file documented as of this encounter Visit Diagnoses Not on filedocumented in this encounter
--- OUTSIDE RECORDS SUMMARY | 2025-07-15 08:04 | XMS_ITS | Referral Summary ---
Author Organization [facility] Address [address] [place] [id number] Care Team Providers Care Adobe Ball Mixer Name Role Phone Pcp, None MD Primary Care Provider [phone] Allergies Active Allergy Reactions Criticality Noted Date [...] 12/14/2024 5:59 AM EST Plan of Treatment Not on file Insurance [facility] TRANS[facility] H[employer] [address] Care Teams Adobe Ball Mixer Relationship Specialty Start Date End Date Pcp, None, No Address [place], [place] PCP - General Internal Medicine 12/14/24
--- OUTSIDE RECORDS SUMMARY | 2025-07-15 08:04 | XMS_ITS | Encounter Summary ---
Author Organization [email or web address] ([place], [place], [place], [place]) Address [address] [place] [address] Care Team Providers Care Parking Lot Chauffeur Name Role Phone Unavailable Primary Care Provider Unavailabl e Encounter Details Date Type Department Care Team (Late st Contact Info) Description 03/30/[address] [facility] [place] Family [place] [address] ProviderCarlos MD [address] [place] [address] Social History Tobacco Use Types Packs/Day Years Used Date Smoking Tobacco: Never Assessed Comments Unknown Sex and Gender Information Value Date Recorded Sex Assigned at Not on file Legal Sex Female 6:05 PM CDT Gender Identity Not on file Sexual Orientation Not on file documented as of this encounter Miscellaneous Notes * Cerner Conversion Note - Carlos Valerio MD - 03/30/2021 12:46 AM CDT Patient: BENY TY Age: 55 Years Sex: Female : 1965 *Operation Esophagogastroduodenoscopy, Esophageal Dilatation, Foreign Body Removal. Anesthesia Type Fentanyl 50mcg IV Versed 4mg IV Indication for Surgery Food impaction of the esophagus. *Preoperative Diagnosis food bolus *Postoperative Diagnosis food bolus due to GERD with stricture Hiatal hernia *Surgeon(s) Primary Surgeon ANDREW MORSE MD (Surgeon/Proceduralist, First) *Estimated Blood Loss Minimal. *Findings Large amount of food impacted in the distal esophagus due to a benign stricture at the GE junction and a moderate hiatal hernia. It was pushed down carefully into the stomach with the gastroscope. The stricture was dilated to 19mm with a TTS balloon. Minimal bleed. Normal stomach and duodenum. *Specimen(s) NA Complications None. Resume diet and home meds. Follow up EGD in 3-4 months for esophageal dilatation. Date of Service Date/Time of Service SN - Proc - Start Time: 03/30/21 00:24:00 (03/30/21 00:33:32) SN - Proc - Start Time: 03/30/21 00:24:00 (03/30/21 00:33:32) documented in this encounter Plan of Treatment Not on file documented as of this encounter Visit Diagnoses Not on filedocumented in this encounter
--- OUTSIDE RECORDS SUMMARY | 2025-07-15 08:04 | XMS_ITS | Encounter Summary ---
Author Organization [employer] ([place], [place], [place], [place]) Address [address] [place] [address] Care Team Providers Care Soil Conservation Technician Name Role Phone Unavailable Primary Care Provider Unavailabl e Encounter Details Date Type Department Care Team (Late st Contact Info) Description 03/30/2021 Transcribed Document [facility] [place] [facility] include 234 beds at the [facility] [address] ProviderCarlos MD [address] [place] [address] Social History Tobacco Use Types Packs/Day Years Used Date Smoking Tobacco: Never Assessed Comments Unknown Sex and Gender Information Value Date Recorded Sex Assigned at Not on file Legal Sex Female 6:05 PM CDT Gender Identity Not on file Sexual Orientation Not on file documented as of this encounter Miscellaneous Notes * Cerner Conversion Note - Carlos Valerio MD - 03/30/2021 1:47 AM CDT [facility] [place] [address] BENY TY APRIL :1965 Visit Time:03/29/2021 Your Visit Summary Your Care Team Primary Provider: JENNIFER MOREJON MD-EMR Secondary Provider: Your Diagnosis Chest pain Esophageal foreign body Foreign body in throat Medical Information You may obtain a copy of your Emergency Department visit from Medical Records by calling the hospital phone number listed above and asking to be directed to the Medical Records Department. If you had special tests, such as EKG???s or X-rays, the interpretation of your tests given to you by the Emergency Department Physician is a preliminary report. Some fractures and illnesses fail to show up on preliminary tests. These will be reviewed again and we will call you if there are any new suggestions. If your symptoms continue notify your physician. After you leave, you should follow the instructions provided. What to do next Follow-Up Appointments Follow Up with ANDREW MORSE When Within 1 to 2 weeks Where: [address] [facility] [address] [place] [address]- Business (1) Follow Up with ROSINA LIMA When Within 2 to 3 days Where: [address] [place] [address]- Business (1) Follow Up with Follow up with primary care provider When Within 2 to 3 days Allergies erythromycin penicillin Immunizations This Visit No Immunizations Found Medications What How Much When Instructions Next Dose ALPRAZolam (ALPRAZolam 0.25 mg oral tablet) 1 Tablet(s) Oral Three Times A Day as needed for for anxiety buPROPion (buPROPion 150 mg/ 12 hours (SR) oral tablet, extended release) 1 Tablet(s) Oral Two Times A Day fluoxetine (fluoxetine 20 mg oral capsule) 1 Capsule(s) Oral Every Day medroxyPROGESTERone (Provera 10 mg oral tablet) Oral Every Day pantoprazole (pantoprazole 40 mg oral delayed release tablet) 1 Tablet(s) Oral Every Day The home medications listed are only as accurate as the information you provided. Please continue taking all of your medications prescribed by your Primary Care Provider unless specifically told to change or discontinue the medication. Please direct any questions regarding your home medications to your Primary Care Provider. Take your medications faithfully. Do NOT skip medication. Do NOT stop taking medications without the direction of a physician. Carry a list of your medications with you at all times, and take this medication list with you to your first follow up visit. Report any side effects. Avoid herbal remedies unless discussed with your physician. As part of your treatment plan, your physician may have prescribed a limited course of a controlled substance. This medication may be given to help people with moderate or severe pain or for other medical conditions, but there are risks involved with treatment. Common side effects may include nausea, constipation, drowsiness, sweating, itching, dry mouth, and rash. More serious side effects may include cognitive and motor impairment, like problems with thinking, concentrating, alertness, and movement (e.g. slowed reflexes), and driving and operating heavy machinery can be dangerous. It is important for you to talk to your physician if you have these side effects or questions. These controlled substances can produce physical dependence and be habit-forming if taken for an extended period of time, which means that the body has gotten used to them and may experience withdrawal symptoms if they are abruptly stopped. Withdrawal symptoms can include runny nose, sweating, goose bumps, diarrhea, abdominal cramping, rapid heartbeat, difficulty sleeping, and nervousness. Please dispose of unused and medications per pharmacy guidance. Test Results Laboratory or Other Results This Visit (last charted value for your 03/29/2021 visit) Hematology 03/29/2021 10:30 PM WBC: 9.7 K/uL -- Normal range between ( 4.5 and 10.5 ) RBC: 4.60 Million/uL -- Normal range between ( 3.93 and 5.22 ) Hct: 43.3 % -- Normal range between ( 34.1 and 44.9 ) Hgb: 14.0 g/dL -- Normal range between ( 11.2 and 15.7 ) Platelet Count: 356 K/uL -- Normal range between ( 163 and 369 ) MCH: 30.4 pg -- Normal range between ( 25.6 and 32.2 ) MCHC: 32.3 Gram/dL -- Normal range between ( 32.2 and 36.5 ) MCV: 94.1 fL -- Normal range between ( 79.0 and 94.8 ) Slide Review: No Eos %: 3.7 % -- Normal range between ( 0.0 and 7.0 ) [place] #: 0.78 K/uL -- Normal range between ( 0.16 and 1.00 ) Eos #: 0.36 x10(3)/uL -- Normal range between ( 0.00 and 0.80 ) [place] %: 8.1 % -- Normal range between ( 3.0 and 9.0 ) Baso %: 0.5 % -- Normal range between ( 0.0 and 1.5 ) Baso #: 0.05 x10(3)/uL -- Normal range between ( 0.00 and 0.20 ) RDW: 14.5 % -- Normal range between ( 11.7 and 14.9 ) Neut %: 57.2 % -- Normal range between ( 34.0 and 71.0 ) Neut #: 5.53 K/uL -- Normal range between ( 1.56 and 6.13 ) Lymph %: 30.1 % -- Normal range between ( 19.3 and 53.1 ) Lymph #: 2.91 x10(3)/uL -- Normal range between ( 1.00 and 3.90 ) MPV: 9.3 fL -- Normal range between ( 9.4 and 12.4 ) IG#: 0.04 x10(3)/uL -- Normal range between ( 0.00 and 0.05 ) IG%: 0.40 % -- Normal range between ( 0.00 and 0.60 ) General Chemistry 03/29/2021 10:30 PM Creatinine Level: 0.70 mg/dL -- Normal range between ( 0.55 and 1.02 ) Sodium Level: 142 mmol/L -- Normal range between ( 136 and 146 ) Potassium Level: 3.9 mmol/L -- Normal range between ( 3.5 and 5.1 ) Chloride Level: 109 mmol/L -- Normal range between ( 102 and 112 ) Carbon Dioxide Level: 28 mmol/L -- Normal range between ( 21 and 32 ) Anion Gap: 9 -- Normal range between ( 9 and 20 ) Bun/Creatinine: 14.3 -- Normal range between ( 8.0 and 20.0 ) Calcium Level: 9.2 mg/dL -- Normal range between ( 8.4 and 10.1 ) eGFR : >60 mL/min/1.73m2 eGFR NonAfrican: >60 mL/min/1.73m2 Glucose Level: 92 mg/dL -- Normal range between ( 74 and 106 ) Blood Urea Nitrogen: 10 mg/dL -- Normal range between ( 7 and 22 ) Education Materials Swallowed Foreign Body, Adult A swallowed foreign body is an object that gets stuck in the digestive tract, either in the part of the body that moves food from the mouth to the stomach (esophagus) or in another part. When a person swallows an object, it passes into the esophagus. The narrowest place in the digestive system is where the esophagus meets the stomach. If the object can pass through that place, it will usually continue through the rest of the digestive system without causing problems. A foreign body that gets stuck may need to be removed. Foreign bodies may be swallowed by accident or on purpose. It is very important to tell your health care provider what you have swallowed. Some swallowed objects can be life-threatening, and you may need emergency treatment. Dangerous swallowed foreign bodies include: ??? Objects that get stuck in your throat. ??? Objects that make you unable to swallow. ??? Objects that interfere with your breathing. ??? Sharp objects. ??? Harmful or poisonous (toxic) objects, such as batteries or illegal drugs. What are the causes? The most common swallowed foreign body is food that will not pass through your esophagus to your stomach (food impaction). Foods that commonly become impacted include meats and hard vegetables such as carrots and radishes. Other common swallowed foreign bodies include: ??? Pieces of bone from meat or fish. ??? Toothpicks. ??? Dentures. What increases the risk? You are more likely to have a swallowed foreign body if you: ??? Wear dentures. ??? Have been drinking alcohol or taking drugs. ??? Have a mental health condition. ??? Have difficulties with thinking and learning (cognitive impairment). ??? Have a narrowed or scarred area in your digestive tract. What are the signs or symptoms? Symptoms of this condition include: ??? Pain or pressure in your throat or chest. ??? Not being able to swallow food or liquid. ??? Not being able to swallow your saliva. ??? Drooling. ??? Choking. ??? A hoarse voice. ??? Trouble breathing. ??? Noisy breathing. ??? Vomit that has blood in it. How is this diagnosed? This condition may be diagnosed based on your symptoms and medical history. Your health care provider will do a physical exam to confirm the diagnosis and to find the object. A metal detector may be used to find metal objects. Imaging studies may also be done, including: ??? X-rays. ??? A CT scan. Some objects may not be seen on imaging studies. In those cases, an exam or procedure may be done using a scope to look into your esophagus (endoscopy). The tube (endoscope) that is used for this exam may be stiff (rigid) or flexible, depending on where the foreign body is stuck. How is this treated? Usually, an object that has passed into your stomach but is not dangerous will pass through your digestive system without treatment. If the swallowed object is not dangerous but is stuck in your esophagus: ??? Your health care provider may gently suction out the object through your mouth. ??? You may be given medicine to relax the muscles of your esophagus to allow the object to pass through. ??? An endoscopy may be done to find and remove the object if it does not pass through with medicine. Your health care provider will put medical instruments through the endoscope to remove the object. You may need emergency treatment if: ? The object is in your esophagus and is causing you to inhale saliva into your lungs (aspirate). ? The object is in your esophagus and is pressing on your airway. This makes it hard for you to breathe. ? The object can damage your digestive tract. Some objects that can cause damage include batteries, magnets, sharp objects, and drugs. Follow these instructions at home: Caring for yourself ??? If the object in your digestive system is expected to pass: ? Continue eating what you usually eat unless your health care provider gives you different instructions. ? Check your stool after every bowel movement to see if you have passed the object. ? Contact your health care provider if the object has not passed after 3 days. ??? If you had an endoscopic procedure to remove the foreign body, follow instructions from your health care provider about caring for yourself after the procedure. General instructions ??? Take [id number] and prescription medicines only as told by your health care provider. ??? Keep all follow-up visits and repeat imaging tests as told by your health care provider. This is important. How is this prevented? Cut your food into small pieces. ??? Always sit upright while eating. ??? Remove bones from meat and fish. ??? Chew your food well before swallowing. ??? Do not talk, laugh, or walk around while eating or swallowing. Contact a health care provider if: ??? You continue to have symptoms of a swallowed foreign body. ??? The object has not passed out of your body after 3 days. Get help right away if you: ??? Have a fever. ??? Have pain in your chest or your abdomen. ??? Cough up blood. ??? Have blood in your stool (feces). ??? Have blood in your vomit after treatment. Summary ??? A swallowed foreign body is an object that gets stuck in the digestive tract, either in the part of the body that moves food from the mouth to the stomach (esophagus) or in another part. ??? Usually, an object that has passed into your stomach but is not dangerous will pass through your digestive system without treatment. ??? Endoscopy may be done to find and remove the object. ??? If the object in your digestive system is expected to pass, contact your health care provider if the object has not passed after 3 days. ??? Get help right away if you have blood in your stool (feces) or there is blood when you cough or vomit. This information is not intended to replace advice given to you by your health care provider. Make sure you discuss any questions you have with your health care provider. Document Revised: 08/29/2019 Document Reviewed: 08/29/2019 [employer] Patient Education ?? 2020 [employer]. Emergency Awareness and Preventative Care STROKE is an EMERGENCY Every Minute Counts Act FAST and Check for these signs: FACE Does the face look uneven? ARM Does one arm drift down? SPEECH Does their speech sound strange? TIME Call at any sign of stroke Stroke Risk Factors Atrial Fibrillation (irregular heartbeat) Diabetes Family history of stroke Heart Disease Heavy alcohol use High Blood Pressure High Cholesterol Physical inactivity and obesity Smoking Cigarette Smoking The facts are clear, cigarette smoking will shorten your life. Smoking can cause many illnesses along the way. As a healthcare provider, we recommend that you stop smoking. Assistance with quitting is available by contacting 2-266-WHOQ-NOW. This is a free resource providing counseling, support, and referral. Or you may contact your personal physician. National Suicide Prevention Lifeline: The National Suicide Prevention Lifeline is a national network of local crisis centers that provides free and confidential emotional support to people in suicidal crisis or emotional distress 24 hours a day, 7 days a week. Don't Wait! Stop a Heart Attack Before it Starts What is a heart attack? A heart attack is damage or to a part of the heart from severely decreased or lack of blood flow to the heart. Over time, arteries can become narrow from the buildup of fat and cholesterol, which is called plaque. The plaque can rupture causing a blood clot to form. When the blood clot forms, the artery can become severely narrowed or completely blocked, causing a heart attack. Heart attack is the leading cause of in the [place]. 85% of muscle damage occurs within the first 2 hours. Delay in the recognition of heart attack symptoms increases the chances of . Know the early symptoms of a heart attack: Nausea Feeling of fullness in chest Jaw Pain Pain that travels down one or both arms Fatigue/being tired Anxiety Back Pain Chest pressure, squeezing, or discomfort Shortness of breath Sweating, or a cold sweat Feeling of impending doom There are unusual signs of a heart attack, too! Women, the elderly, and diabetics may present with atypical symptoms: Fainting/dizziness Weakness Confusion Risk Factors for a Heart Attack Some heart disease risk factors, such as age and family history, cannot be changed. Others, like smoking and lack of exercise, can be changed. Smoking High Cholesterol High Blood Pressure Family History Obesity Age Gender (Males are at higher risk) Lack of Exercise Diabetes Diet Stress Excessive Alcohol Intake If you or someone you know is experiencing the signs and symptoms of a heart attack, DON???T DELAY. Call immediately and seek help. If someone collapses, perform CPR! Do not attempt to drive if you are having symptoms of heart attack. Hands-Only CPR Why Hands-Only CPR? Hands-Only CPR has been shown to be as effective as conventional CPR for cardiac arrests that occur outside of a hospital. Survival depends on immediately receiving CPR from someone nearby. How do you perform Hands-Only CPR? There are two easy steps: Call if you see a teen or adult collapse Push hard and fast in the center of the chest at a beat of 100 beats per minute. Save a life! 4 WAYS TO GET AHEAD OF SEPSIS SEPSIS is a MEDICAL EMERGENCY. Time matters! Infections put you and your family at risk for a life-threatening condition called sepsis. Sepsis is the body's extreme response to an infection. It is life-threatening, and without timely treatment, sepsis can rapidly lead to tissue damage, organ failure, and . Sepsis happens when an infection you already have-in your skin, lungs, urinary tract or somewhere else-triggers a chain reaction throughout your body. 1 PREVENT INFECTIONS Take good care of chronic conditions. Talk to your doctor about getting the recommended vaccines. 2 PRACTICE GOOD HYGIENE Wash your hands frequently. Keep cuts or open sores clean and covered until they are healed. 3 KNOW THE SYMPTOMS Confusion or disorientation Shortness of breath High heart rate Fever, shivering, or feeling very cold Extreme pain or discomfort Clammy or sweaty skin 4 ACT FAST Get medical care IMMEDIATELY if you suspect sepsis or if you have an infection that is not getting better or is getting worse. To learn more about sepsis and how to prevent infections, visit www.cdc.gov/sepsis. The examination and treatment you have received in the Emergency Department has been done to provide an appropriate evaluation and stabilizing treatment on an emergency basis only. Given the limited resources, it is not meant to be a substitute for complete medical care. The follow-up doctor you named will receive a copy of your records and all test reports. IT IS IMPORTANT THAT YOU SCHEDULE A FOLLOW-UP APPOINTMENT AND ARE RE-EVALUATED. You should report any new complaints, symptoms, or remaining problems at that time. IT IS IMPOSSIBLE FOR THE EMERGENCY DEPARTMENT TO RECOGNIZE AND TREAT ALL ELEMENTS OF INJURY OR ILLNESS IN A SINGLE VISIT. If you have been referred to a specialist physician, it means that we believe you may have a condition that requires the expertise of a specialist. These physicians work in partnership with the hospital and have agreed to see referred patients in their office for further evaluation. KEEP IN MIND THAT THE SPECIALIST HAS HIS/HER OWN OFFICE POLICIES WHICH MAY REQUIRE PROPER INSURANCE OR PAYMENT UP FRONT BEFORE THE SPECIALIST WILL SEE YOU. It is your responsibility to call the specialist physician to make an appointment. We do not have the ability to refer patients to specialists/physicians that work with specific insurance companies. Please be advised that all financial charges or billing practices are determined by that practice, not the hospital. If your insurance company requires that you see a specialist from their approved list, it is your responsibility to contact your insurance company to make those arrangements. It is also your responsibility to follow any other requirements of your insurance company necessary to obtain coverage for claims submitted. We will bill your insurance; however, you are responsible today for any co-pay amounts. You will receive a separate bill for any services you may have received including: emergency, radiology, or pathology physicians. Patient Name:BENY TY I have received this information and was given the opportunity to ask questions. Patient/Director Day Care Center Name: Patient/Director Day Care Center Signature: Relationship to Patient: Clinician/Hospital Director Day Care Center Signature: Please Provide a Telephone Number Where You Can Be Reached: Is it Permissible To Leave a Message? Date: documented in this encounter Plan of Treatment Not on file documented as of this encounter Visit Diagnoses Not on filedocumented in this encounter
--- OUTSIDE RECORDS SUMMARY | 2025-07-15 08:04 | XMS_ITS | Encounter Summary ---
Author Organization [employer] ([place], [place], [place], [place]) Address [address] [place] [address] Care Team Providers Care Binder Folder Operator Name Role Phone Unavailable Primary Care Provider Unavailabl e Encounter Details Date Type Department Care Team (Late st Contact Info) Description 03/30/2021 Transcribed Document [facility] [place] [facility] [place] [address] ProviderCarlos MD [facility] [place] [address] Social History Tobacco Use Types Packs/Day Years Used Date Smoking Tobacco: Never Assessed Comments Unknown Sex and Gender Information Value Date Recorded Sex Assigned at Not on file Legal Sex Female 6:05 PM CDT Gender Identity Not on file Sexual Orientation Not on file documented as of this encounter Miscellaneous Notes * Cerner Conversion Note - Historical ProviderMD - 03/30/2021 8:12 AM CDT SARS-CoV-2 (COVID19 PCR) - - Negative 03/30/2021 02:02 03/30/2021 08:12 (LIBERTAD HAND MD-EMR) Reviewed by Provider, No further action required documented in this encounter Plan of Treatment Not on file documented as of this encounter Visit Diagnoses Not on filedocumented in this encounter
--- OUTSIDE RECORDS SUMMARY | 2025-07-15 08:04 | XMS_ITS | Encounter Summary ---
Author Organization [employer] ([place], [place], [place], [place]) Address [address] [place] [address] Care Team Providers Care Lead Former Name Role Phone Unavailable Primary Care Provider Unavailabl e Encounter Details Date Type Department Care Team (Late st Contact Info) Description 03/29/2021 Transcribed Document [facility] [place] [facility] [place] [facility] [place] [address] ProviderCarlos MD [address] [place] [address] Social History Tobacco Use Types Packs/Day Years Used Date Smoking Tobacco: Never Assessed Comments Unknown Sex and Gender Information Value Date Recorded Sex Assigned at Not on file Legal Sex Female 6:05 PM CDT Gender Identity Not on file Sexual Orientation Not on file documented as of this encounter Miscellaneous Notes * Cerner Conversion Note - Carlos Valerio MD - 03/29/2021 11:06 PM CDT Patient: BENY TY Age: 55 years Sex: Female : 1965 Associated Diagnoses: Esophageal foreign body Author: JENNIFER MOREJON MD-EMR Basic Information Additional information: Chief Complaint from Nursing Triage Note : Chief Complaint 03/29/2021 21:48 EDT Chief Complaint pt reports ate some country ham at 2pm and its stuck in her throat. . History of Present Illness Additional history: 55-year-old female was eating country ham at 2 PM this afternoon and has been unable to keep down fluids since that time., Patient feels that the food bolus is stuck in her midesophagus and states that she has had this problem before requiring endoscopy. Patient has no history of heart disease or chest pain. Risk factors for coronary artery disease include smoking and hypertension. She does not have diabetes or strong family history., No focal weakness or numbness. Discussed with Dr. Drake at 2305. Review of Systems Constitutional symptoms: No fever, no chills. Skin symptoms: No jaundice, Eye symptoms: Vision unchanged. ENMT symptoms: No ear pain, Respiratory symptoms: No shortness of breath, Cardiovascular symptoms: No chest pain, Gastrointestinal symptoms: No abdominal pain, Genitourinary symptoms: No dysuria, Musculoskeletal symptoms: No back pain, Neurologic symptoms: No dizziness, Endocrine symptoms: No polyuria, Additional review of systems information: All other systems reviewed and otherwise negative. Health Status Allergies: Allergic Reactions (Selected) Severity Not Documented Erythromycin- No reactions were documented. Penicillin- No reactions were documented.. Past Medical/ Family/ Social History Medical history Cardiovascular: no coronary artery disease. Endocrine: no diabetes. Surgical history: Colonoscopy ([id number]). joann. wisdom. egd. appy. cystoscope. D&C. cyst removed from ovary.. Family history: No family history items have been selected or recorded.. Social history: Social & Psychosocial Habits Alcohol 07/11/2017 Alcohol Use History, Social Habits Yes Alcohol Use Frequency Rarely Home/Environment 07/03/2014 Living situation: Home/Independent Nutrition/Health 07/11/2017 Caffeine intake amount: 4 Substance Abuse 07/11/2017 Recreational Drug Use History No Tobacco 03/07/2017 Smoking Status Current every day smoker Smoking Frequency Within Last 30 Days Five or more cigarettes p Tobacco Use Within Last Twelve Months Cigarettes . Problem list: Active Problems (6) Acid reflux Acute low back pain Anxiety Arthritis Depression Migraines . Physical Examination Vital Signs Vital Signs/Vital Measures 03/29/2021 21:48 EDT Systolic Blood Pressure 131 mmHg Diastolic Blood Pressure 60 mmHg Temperature Source Oral Temperature Mode Fahrenheit Temperature, Fahrenheit 97.9 Deg F Clinical Temperature, C 36.6 Deg C Peripheral Pulse Rate 97 bpm Respiratory Rate 20 Breaths/Min Oxygen Saturation 98 % Oxygen Therapy Mode Room air . Measurements 03/29/2021 21:48 EDT Height Source Stated Height Entry Format [place] Height/Length, [place] (ft) 5 ft Height/Length [place] 8 Inch CLINICALHEIGHT 172.72 cm Alfred Body Weight 63.45 kg Weight Source, ED Critical estimated dosing weight Weight Entry Format [place] Weight Samoan lb 200 lb CLINICALWEIGHT 90.91 kg Body Surface Area (BSA) 2.05 m2 Body Mass Index 30.5 kg/m2 HI . Oxygen Saturation 03/29/2021 21:48 EDT Oxygen Saturation 98 % . General: Alert, moderate distress. Skin: Warm, dry. Eye: Pupils are equal, round and reactive to light, extraocular movements are intact. Neck: Supple, no tenderness. Cardiovascular: Regular rate and rhythm, No murmur. Respiratory: Lungs are clear to auscultation, respirations are non-labored, breath sounds are equal. Chest wall: No tenderness. Musculoskeletal: Normal ROM, normal strength. Gastrointestinal: Soft, Nontender, Non distended, Normal bowel sounds. Neurological: Alert and oriented to person, place, time, and situation, No focal neurological deficit observed. Psychiatric: Cooperative. Medical Decision Making Orders Include Previous Orders (Selected) Inpatient Orders Ordered Cardiac Monitoring: Cardiac Monitoring: EKG: Saline Lock Insert: Completed .Automated Differential: BMP Basic Metabolic Panel: Broset Violence Assessment: CBC w/ Auto Diff: ED Adult Fall Risk Assessment: ED Adult Triage: ED C-SSRS: ED Clinical Reconciliation: ED nuclear plant instrument technician: . Electrocardiogram: Time 03/29/2021 22:41:00, rate 95, normal sinus rhythm, No ST changes, no ectopy, normal NC & QRS intervals, EP Interp. Results review: Lab results : Lab Results 03/29/2021 22:30 EDT Sodium Level 142 mmol/L Potassium Level 3.9 mmol/L Chloride Level 109 mmol/L Carbon Dioxide Level 28 mmol/L Anion Gap 9 Glucose Level 92 mg/dL Blood Urea Nitrogen 10 mg/dL Creatinine Level 0.70 mg/dL eGFR >60 mL/min/1.73m2 eGFR NonAfrican >60 mL/min/1.73m2 Bun/Creatinine 14.3 Calcium Level 9.2 mg/dL WBC 9.7 K/uL RBC 4.60 Million/uL Hgb 14.0 g/dL Hct 43.3 % MCV 94.1 fL MCH 30.4 pg MCHC 32.3 Gram/dL Platelet Count 356 K/uL MPV 9.3 fL LOW RDW 14.5 % Neut % 57.2 % Neut # 5.53 K/uL Lymph % 30.1 % Lymph # 2.91 x10(3)/uL Tama % 8.1 % Tama # 0.78 K/uL Eos % 3.7 % Eos # 0.36 x10(3)/uL Baso % 0.5 % Baso # 0.05 x10(3)/uL Slide Review No IG# 0.04 x10(3)/uL IG% 0.40 % . Reexamination/ Reevaluation Time: 03/30/2021 01:11:00 . Notes: EGD performed to remove food bolus. Patient currently recovering with no distress.. Impression and Plan Diagnosis Esophageal foreign body - Discharge, Emergency medicine, Medical Calls-Consults - Dr. Pal instructed us to call endoscopy team at 11:10 PM.. Plan Patient was given the following educational materials: Swallowed Foreign Body, Adult. Follow up with: Follow up with primary care provider Within 2 to 3 days. Counseled: Patient. documented in this encounter Plan of Treatment Not on file documented as of this encounter Visit Diagnoses Not on filedocumented in this encounter
--- OUTSIDE RECORDS SUMMARY | 2025-07-15 08:04 | XMS_ITS | Encounter Summary ---
Author Organization [employer] ([place], [place], [place], [place]) Address [address] [place] [address] Care Team Providers Care Marine Fire Fighter Name Role Phone Unavailable Primary Care Provider Unavailabl e Encounter Details Date Type Department Care Team (Late st Contact Info) Description 03/29/2021 Transcribed Document [facility] [place] Family Medicine [address] [place] [address] ProviderCarlos [place] [address] Social History Tobacco Use Types Packs/Day Years Used Date Smoking Tobacco: Never Assessed Comments Unknown Sex and Gender Information Value Date Recorded Sex Assigned at Not on file Legal Sex Female 6:05 PM CDT Gender Identity Not on file Sexual Orientation Not on file documented as of this encounter Miscellaneous Notes * Cerner Conversion Note - Carlos ProviderMD - 03/29/2021 9:45 PM CDT Broset Violence Assessment Entered On: 03/29/2021 22:22 EDT Performed On: 03/29/2021 22:21 EDT by PETRA MITCHELL RN-PATIENT CARE BEDSIDE NON-EXEMPT Broset Violence Assessment Broset Violence Checklist of Symptoms : None Broset Violence Symptoms Subtotal : 0 Broset Violence Symptoms Indicator : Low risk (0) PETRA MITCHELL RN-PATIENT CARE BEDSIDE NON-EXEMPT - 03/29/2021 22:21 EDT documented in this encounter Plan of Treatment Not on file documented as of this encounter Visit Diagnoses Not on filedocumented in this encounter
--- OUTSIDE RECORDS SUMMARY | 2025-07-15 08:04 | XMS_ITS | Encounter Summary ---
Author Organization [employer] ([place], [place], [place], [place]) Address [address] [place] [address] Care Team Providers Care Small Arms Artillery Repairer Name Role Phone Unavailable Primary Care Provider Unavailabl e Encounter Details Date Type Department Care Team (Late st Contact Info) Description 03/29/2021 Transcribed Document [facility] [place] [facility] [place] [address] ProviderCarlos MD [facility] [place] [address] Social History Tobacco Use [...] Carlos ProviderMD - 03/29/2021 9:45 PM CDT ED Assessment Entered On: 03/29/2021 22:22 EDT Performed On: 03/29/2021 22:21 EDT by PETRA MITCHELL RN-PATIENT CARE BEDSIDE NON-EXEMPT ED Quick Look Assessment Level of Consciousness : Alert, Awake Affect/Behavior : Appropriate, Calm, Cooperative Orientation : Oriented x 4 Skin Temperature : Warm Skin Description : Normal for ethnicity PETRA MITCHELL RN-PATIENT CARE BEDSIDE NON-EXEMPT - 03/29/2021 22:21 EDT ED General-Functional Assess Information Obtained From : Patient Communication Barrier : None Primary Language : Iraqi Any Spiritual/Cultural Needs or Requests : No Currently in Unsafe Situation : No PETRA MITCHELL RN-PATIENT CARE BEDSIDE NON-EXEMPT - 03/29/2021 22:21 EDT Social Habits Smoking Status : Never (less than 100 in lifetime; none in last 30 days) Smokeless Tobacco Status : Never Desires Tobacco Cessation Calc : 0 MITCHELL, PETRA, RN-PATIENT CARE BEDSIDE NON-EXEMPT - 03/29/2021 22:21 EDT Social History (As Of: 03/29/2021 22:22:21 EDT) Tobacco: Smoking Status Current every day smoker. Five or more cigarettes per day Smoking Frequency Within Last 30 Days. Use in Last 12 Months: Cigarettes. (Last Updated: 03/07/2017 11:52:47 EDT by CELSO JONES, RN) Alcohol: Alcohol Use History Yes. Alcohol Use Frequency Rarely. (Last Updated: 07/11/2017 07:07:32 EDT by YAO BLANCO, RN) Substance Abuse: Drug Use Hx: No. (Last Updated: 07/11/2017 07:07:37 EDT by YAO BLANCO, RN) Nutrition/Health: Caffeine intake amount: 4. (Last Updated: 07/11/2017 07:07:49 EDT by YAO BLANCO, YIFAN) Home/Environment: Living situation: Home/Independent. (Last Updated: 07/03/2014 15:38:47 EDT by RICARDO POWERS MD-EMR) Cardiovascular ASMT, ED Cardiovascular Assessment WDL : WDL with exceptions Cardiovascular Symptoms : Nausea at rest Heart Rhythm : Regular Nail Bed Color : [place] Chest Pain : No PETRA MITCHELL RN-PATIENT CARE BEDSIDE NON-EXEMPT - 03/29/2021 22:21 EDT Respiratory Respiratory Assessment WDL : PETRA WHEELER RN-PATIENT CARE BEDSIDE NON-EXEMPT - 03/29/2021 22:21 EDT Gastrointestinal ED Gastrointestinal Symptoms : Nausea, Vomiting PETRA MITCHELL RN-PATIENT CARE BEDSIDE NON-EXEMPT - 03/29/2021 22:21 EDT Genitourinary Assessment, ED Genitourinary Assessment WDL : PETRA WHEELER RN-PATIENT CARE BEDSIDE NON-EXEMPT - 03/29/2021 22:21 EDT Integumentary Assessment Integumentary Assessment WDL : PETRA WHEELER RN-PATIENT CARE BEDSIDE NON-EXEMPT - 03/29/2021 22:21 EDT Neurologic ASMT, ED Neurologic Assessment WDL : PETRA WHEELER RN-PATIENT CARE BEDSIDE NON-EXEMPT - 03/29/2021 22:21 EDT Electronically signed by Aaron, [facility] Conversion Locker Room Clerk Cerner at 02/13/2023 1:51 PM CDT documented in this encounter Plan of Treatment Not on file documented as of this encounter Visit Diagnoses Not on filedocumented in this encounter
--- OUTSIDE RECORDS SUMMARY | 2025-07-15 08:04 | XMS_ITS | Encounter Summary ---
Author Organization [employer] ([place], [place], [place], [place]) Address [address] [place] [address] Care Team Providers Care Wastewater Process Engineer Name Role Phone Unavailable Primary Care Provider Unavailabl e Encounter Details Date Type Department Care Team (Late st Contact Info) Description 03/30/2021 Transcribed Document [facility] [place] [facility] [place] [address] ProviderCarlos MD [address] [place] [address] Social History Tobacco Use Types Packs/Day Years Used Date Smoking Tobacco: Never Assessed Comments Unknown Sex and Gender Information Value Date Recorded Sex Assigned at Not on file Legal Sex Female 6:05 PM CDT Gender Identity Not on file Sexual Orientation Not on file documented as of this encounter Miscellaneous Notes * Cerner Conversion Note - Carlos ProviderMD - 03/30/2021 12:24 AM CDT [facility] Endo IntraOp Summary Primary Physician: ANDREW MORSE MD Finalized Date/Time: 03/30/21 00:36:48 Pt. Name: BENY TY/Sex: 1965 Female Med Rec #: [id number] Physician: CARLI ALLEN MD-EMR Financial #: [id number] Pt. Type: E Room/Bed: / Admit/Disch: 03/29/21 21:45:00 - Institution: [facility] Endo - Case Attendance Entry 1 Entry 2 Entry 3 Case Attendee ANDREW MORSE MD Johnson, Kaitlyn G, RN Samson Salgado, Director Mission Role Performed Surgeon/Proceduralist, Motor Setter, First Scrub, First First Time In 03/30/21 00:22:00 03/29/21 23:55:00 03/29/21 23:55:00 Time Out 03/30/21 00:42:00 03/30/21 00:42:00 03/30/21 00:42:00 Procedure Esophagogastroduodenosco Esophagogastroduodenosco Esophagogastroduodenosco py, Esophageal py, Esophageal py, Esophageal Dilatation Dilatation Dilatation Other Attendee Superficial Wound Closed By: Last Modified By: Magali Roman RN Johnson, Kaitlyn G RN Magali Roman RN 03/30/21 00:33:20 03/30/21 00:36:30 03/30/21 00:33:20 [facility] Endo - Case Attendance Audit 03/30/21 00:36:30 Pouch Maker: [id number] Modifier: [id number] 2 <*> Time In 03/30/21 23:55:00 2 <*> Time Out 03/30/21 00:42:00 2 <*> Procedure Esophagogastroduodenoscopy, Esophageal Dilatation 3 <*> Time In 03/30/21 23:55:00 3 <*> Procedure Esophagogastroduodenoscopy, Esophageal Dilatation 03/30/21 00:33:33 Pouch Maker: [id number] Modifier: [id number] 1 <*> Procedure Esophagogastroduodenoscopy 2 <*> Procedure Esophagogastroduodenoscopy 3 <*> Procedure Esophagogastroduodenoscopy 03/30/21 00:33:20 Pouch Maker: [id number] Modifier: [id number] 1 <*> Time In 03/30/21 00:22:00 1 <+> Time Out 1 <*> Procedure Esophagogastroduodenoscopy 2 <+> Time Out 2 <*> Procedure Esophagogastroduodenoscopy 3 <+> Time Out 3 <*> Procedure Esophagogastroduodenoscopy 03/30/21 00:18:10 Pouch Maker: [id number] Modifier: [id number] 1 <+> Time In 1 <*> Procedure Esophagogastroduodenoscopy <+> 2 Case Attendee <+> 2 Role Performed <+> 2 Time In <+> 2 Procedure <+> 3 Case Attendee <+> 3 Role Performed <+> 3 Time In <+> 3 Procedure [facility] Endo - Case times Entry 1 Patient In Room Time 03/29/21 23:55:00 Out Room Time 03/30/21 00:42:00 Anesthesia Start Time 03/29/21 00:24:00 Stop Time 03/30/21 00:28:00 Surgery / Procedure Times Start Time 03/30/21 00:24:00 Stop Time 03/30/21 00:28:00 Last Modified By: Magali Roman RN 03/30/21 00:33:06 [facility] Endo - Case times Audit 03/30/21 00:36:42 Pouch Maker: [id number] Modifier: [id number] 1 <*> In Room Time 03/29/21 23:55:00 1 <*> Start Time 03/29/21 00:24:00 03/30/21 00:33:06 Pouch Maker: [id number] Modifier: [id number] <+> 1 Out Room Time <+> 1 Start Time <+> 1 Stop Time <+> 1 Start Time <+> 1 Stop Time [facility] Endo - Delays Entry 1 Delay Reason Other Duration 0 Minute(s) Last Modified By: Magali Roman RN 03/30/21 00:18:12 [facility] Endo - Departure from OR Entry 1 Integumentary Assessment Integumentary WDL Assessment WDL Transfer/Handoff Transfer to PACU Phase I Handoff Method Bedside/Face to face Post-op Transport Stretcher/Gurney Via Patient Transport Magali Roman RN Accompanied by Last Modified By: Magali Roman RN 03/30/21 00:18:15 [facility] Endo - Endoscopy Details Entry 1 Abdomen Procedure Soft, Non-Tender Assessment Procedure Abdomen 03/30/21 00:18:00 Assessment D/T Radio Frequency Ablation Abdominal Pressure Last Modified By: Magali Roman RN 03/30/21 00:18:20 [facility] Endo - Fire Risk Assessment Entry 1 Fire Info Surgical Site or 1- Yes Incision Above the Xyphoid Open O2 Source 1- Yes (Mask or Cannula) Available Ignition 1- Yes (ESU, Laser, Light Source) Fire Risk 3 Assessment Score Fire Score Fire Risk Yes Assessment Complete Fire Risk Magali Roman RN Assessment Verified By Fire Risk 03/30/21 00:18:00 Assessment Verified Date/Time Fire Risk High Risk Protocol Yes Implemented Standard Fire Yes Safety Precautions Followed Last Modified By: Magali Roman RN 03/30/21 00:18:25 [facility] Endo - General Case [place] 1 Case Information OR Out of Department [facility] Case Level 1 Room Verified Yes Wound Class II - Clean-Contaminated Specialty Gastroenterology Anesthesia Type Moderate Sedation ASA Class 3 Diagnosis Preop Diagnosis food bolus Postop Same As Preop Yes Postop Diagnosis food bolus Last Modified By: Magali Roman RN 03/30/21 00:19:02 [facility] Endo - Intraoperative Assessment Entry 1 Valid History / Yes Physical in Chart Preoperative Yes Checklist Reviewed/Evaluated Patient is Latex No Sensitive Level of WDL Consciousness (WDL = Alert, Oriented to Person, Place, and Time) Last Modified By: Magali Roman RN 03/30/21 00:19:04 [facility] Endo - Intraoperative Equipment Entry 1 Equipment Intraop Monitoring Electrocardiogram Three lead placement (ECG) Electrode Placement Blood Pressure Arm, left upper Location Pulse Oximeter Hand, right Probe Site Antiembolic Devices Scopes Flexible Endoscopes Gastroscope Used Scope Serial E Number/Identificatio n Number Photo/Video Documentation Photo Yes Video No Last Modified By: Magali Roman RN 03/30/21 00:19:12 [facility] Endo - Patient Positioning Entry 1 Procedure Esophagogastroduodenosco py, Esophageal Dilatation Body Position Lateral, right side up Left Arm Position Resting at side Right Arm Position Resting at side Left Leg Position Other Right Leg Position Other Position Comments Right leg over left leg, uncrossed Feet Uncrossed Yes Pressure Points Yes Checked Positioned By Magali Roman RN Position Verified Positioning Yes Verified by Surgeon Last Modified By: Magali Roman RN 03/30/21 00:19:17 [facility] Endo - Patient Positioning Audit 03/30/21 00:33:34 Pouch Maker: [id number] Modifier: [id number] 1 <*> Procedure Esophagogastroduodenoscopy [facility] Endo - Sign In Entry 1 Patient, Site, Yes Procedure Identified Surgical Consent Yes Confirmed Surgical Site N/A Marked by person performing procedure Airway Hypothermia Risk No Warming Measures No Taken Last Modified By: Magali Roman RN 03/30/21 00:19:28 [facility] Endo - Sign Out Entry 1 RN Confirmation Surgical Yes Procedure(s) Identified Instrument, Sponge N/A and Sharps Counts Correct/Documented Equipment Problems N/A Documented Specimen Labeled N/A Correctly Urinary Catheter N/A Documented in IView Safety Checklist Yes Elements Complete? RN Sign Out Magali Roman RN Signature RN Sign Out 03/30/21 00:42:00 Signature Date/Time Plan of Care Outcome - Fire Risk OUTCOME STATEMENT: Goal met Patient is free from injury related to surgical fire Plan of Care Outcome - Pt Positioning OUTCOME STATEMENT: Goal met Absence of signs and symptoms of positioning injury. Plan of Care Outcome - Skin Prep OUTCOME STATEMENT: Goal met Intraoperative care is consistent with measures to prevent infection Plan of Care Outcome - Xray/Images OUTCOME STATEMENT: N/A Absence of observable signs or symptoms of radiation injury Plan of Care Outcome - Counts OUTCOME STATEMENT: N/A Absence of signs and symptoms of injury related to extraneous objects Last Modified By: Magali Roman RN 03/30/21 00:35:36 [facility] Endo - Sign Out Audit 03/30/21 00:35:36 Pouch Maker: [id number] Modifier: [id number] <+> 1 RN Sign Out Signature Date/Time <+> 1 Urinary Catheter Documented in IView [facility] Endo - Surgical Procedures Entry 1 Entry 2 Procedure Esophagogastroduodenosco Esophageal Dilatation py Modifiers Additional Procedure Description Primary Procedure Yes No Primary Surgeon ANDREW MORSE MD YONG, JUNE, MD Start 03/30/21 00:24:00 03/30/21 00:24:00 Stop 03/30/21 00:28:00 03/30/21 00:28:00 Physician States Cecum Reached Anesthesia Type Moderate Sedation Moderate Sedation Specialty Gastroenterology Gastroenterology Wound Class II - Clean-Contaminated II - Clean-Contaminated Last Modified By: Magali Roman RN Johnson, Kaitlyn G, RN 03/30/21 00:19:39 03/30/21 00:33:32 [facility] Endo - Surgical Procedures Audit 03/30/21 00:33:32 Pouch Maker: [id number] Modifier: [id number] <+> 1 Start <+> 1 Stop <+> 2 Procedure <+> 2 Primary Procedure <+> 2 Primary Surgeon <+> 2 Specialty <+> 2 Start <+> 2 Stop <+> 2 Wound Class <+> 2 Anesthesia Type [facility] Endo - Time Out Entry 1 Procedure to be Esophagogastroduodenosco Performed py, Esophageal Dilatation Time Out Time Out Pause Time 03/30/21 00:22:00 All activity Yes suspended (unless life threatening emergency) Team Verbally Correct patient Confirms Information identity, Consent form is present and accurate, Agreement on the procedure to be done, Correct patient position, Relevant images/results properly labeled/appropriately displayed, Performed before each procedure if multiple procedures, Reconcile problems if responses among team members differ Antibiotic N/A Prophylaxis Administered Or In Progress Within the Last 60 Minutes Beta Zeb N/A Administered Venous N/A Thromboembolism Prophylaxis Required Anticipated Critical Events Surgeon None expected Last Modified By: Magali Roman RN 03/30/21 00:34:00 Case Comments <None> Finalized By: Magali Roman RN Document Signatures Signed By: Magali Roman RN 03/30/21 00:36 Electronically signed by Aaron [facility] Conversion Research And Development Chemist Cerner at 02/13/2023 2:01 PM CDT documented in this encounter Plan of Treatment Not on file documented as of this encounter Visit Diagnoses Not on filedocumented in this encounter
--- OUTSIDE RECORDS SUMMARY | 2025-07-15 08:04 | XMS_ITS | Encounter Summary ---
Author Organization [employer] ([place], [place], [place], [place]) Address [address] [place] [address] Care Team Providers Care Public Area Supervisor Name Role Phone Unavailable Primary Care Provider Unavailabl e Encounter Details Date Type Department Care Team (Late st Contact Info) Description 03/30/2021 Transcribed Document [facility] [place] Medicine [facility] [place] [address] ProviderCarlos MD [facility] [place] [address] Social History Tobacco Use Types [...] Carlos ProviderMD - 03/30/2021 1:31 AM CDT Electronically signed by Aaron [facility] Conversion [place] Actor Cerner at 02/13/2023 1:52 PM CDT documented in this encounter Plan of Treatment Not on file documented as of this encounter Visit Diagnoses Not on filedocumented in this encounter
--- OUTSIDE RECORDS SUMMARY | 2025-07-15 08:04 | XMS_ITS | Encounter Summary ---
Author Organization [employer] ([place], [place], [place], [place]) Address [address] [place] [address] Care Team Providers Care Talent Buyer Name Role Phone Unavailable Primary Care Provider Unavailabl e Encounter Details Date Type Department Care Team (Late st Contact Info) Description 03/29/2021 Transcribed Document [facility] [place] [facility] [place] [address] ProviderCarlos MD [address] [place] [address] Social History Tobacco Use Types Packs/Day Years Used Date Smoking Tobacco: Never Assessed Comments Unknown Sex and Gender Information Value Date Recorded Sex Assigned at Not on file Legal Sex Female 6:05 PM CDT Gender Identity Not on file Sexual Orientation Not on file documented as of this encounter Miscellaneous Notes * Cerner Conversion Note - Carlos Valerio MD - 03/29/2021 9:45 PM CDT ED Triage Entered On: 03/29/2021 21:53 EDT Performed On: 03/29/2021 21:48 EDT by JAMEEL RAYO RN ED Triage Across the Room Chief Complaint : pt reports ate some country ham at 2pm and its stuck in her throat. Triage Date/Time : 03/29/2021 21:48 EDT JAMEEL RAYO RN - 03/29/2021 21:48 EDT DCP GENERIC CODE Tracking Acuity : 3 - Urgent Tracking Group : [facility] ED JAMEEL RAYO RN - 03/29/2021 21:48 EDT Mode of Arrival : Stretcher Transported to ED by : Walk in To Room Via : Ambulate Accompanied By : Unaccompanied ED Vital Signs : Document Height & Weight : Document ED Allergies : Document ED Reason for Visit : Document Tetanus Immunization : Less than 5 years JAMEEL RAYO RN - 03/29/2021 21:48 EDT Infectious Disease History Has the patient ever been tested for COVID-19? : No, Patient stated Does patient have symptoms of COVID-19? : No COVID19 Screening : No Experiencing Infectious Disease Symptoms : No symptoms Physical contact outside US in the last 30 days : No Infectious Disease History : Chicken pox/Shingles, Influenza, Mononucleosis Tuberculosis Symptoms : None JAMEEL RAYO RN - 03/29/2021 21:48 EDT Vital Signs ED Temperature Source : Oral Temperature Mode : Fahrenheit Temperature, Fahrenheit : 97.9 Deg F Clinical Temperature, C : 36.6 Deg C Oxygen Therapy Mode : Room air Peripheral Pulse Rate : 97 bpm Respiratory Rate : 20 Breaths/Min Systolic Blood Pressure : 131 mmHg Diastolic Blood Pressure : 60 mmHg Oxygen Saturation : 98 % JAMEEL RAYO RN - 03/29/2021 21:48 EDT Allergy (As Of: 03/29/2021 21:53:10 EDT) Allergies (Active) erythromycin Estimated Onset Date: Unspecified ; Created By: CAMILA POMPA RN; Reaction Status: Active ; Category: Drug ; Substance: erythromycin ; Type: Allergy ; Updated By: CAMILA POMPA RN; Reviewed Date: 03/29/2021 21:52 EDT penicillin Estimated Onset Date: Unspecified ; Created By: CAMILA POMPA RN; Reaction Status: Active ; Category: Drug ; Substance: penicillin ; Type: Allergy ; Updated By: CAMILA POMPA RN; Reviewed Date: 03/29/2021 21:52 EDT Diagnosis Control ED (As Of: 03/29/2021 21:53:10 EDT) Problems(Active) Acid reflux (SNOMED CT :5810040886 ) Name of Problem: Acid reflux ; Recorder: YAO BLANCO RN; Confirmation: Confirmed ; Classification: Medical ; Code: 8058457606 ; Contributor System: [employer] CorpChart ; Last Updated: 07/11/2017 7:02 EDT ; Life Cycle Date: 07/11/2017 ; Life Cycle Status: Active ; Vocabulary: SNOMED CT Acute low back pain (SNOMED CT :125645863 ) Name of Problem: Acute low back pain ; Recorder: CELSO JONES RN; Confirmation: Confirmed ; Classification: Medical ; Code: 906109671 ; Contributor System: PowerChart ; Last Updated: 03/07/2017 11:42 EDT ; Life Cycle Date: 03/07/2017 ; Life Cycle Status: Active ; Vocabulary: SNOMED CT Anxiety (SNOMED CT :6015386612 ) Name of Problem: Anxiety ; Recorder: MYRA JONES PA; Confirmation: Confirmed ; Classification: Medical ; Code: 4067861743 ; Contributor System: PowerChart ; Last Updated: 04/30/2017 18:03 EDT ; Life Cycle Date: 04/30/2017 ; Life Cycle Status: Active ; Responsible Provider: MYRA JONES PA; Vocabulary: SNOMED CT Arthritis (SNOMED CT :5121957779 ) Name of Problem: Arthritis ; Recorder: YAO BLANCO RN; Confirmation: Confirmed ; Classification: Medical ; Code: 9941051508 ; Contributor System: [employer]Chart ; Last Updated: 07/11/2017 7:03 EDT ; Life Cycle Date: 07/11/2017 ; Life Cycle Status: Active ; Vocabulary: SNOMED CT Depression (SNOMED CT :1242557430 ) Name of Problem: Depression ; Recorder: CELSO JONES RN; Confirmation: Confirmed ; Classification: Medical ; Code: 9121546852 ; Contributor System: PowerChart ; Last Updated: 03/07/2017 11:41 EDT ; Life Cycle Date: 03/07/2017 ; Life Cycle Status: Active ; Vocabulary: SNOMED CT Migraines (SNOMED CT :03200676 ) Name of Problem: Migraines ; Recorder: YAO BLANCO RN; Confirmation: Confirmed ; Classification: Medical ; Code: 71014356 ; Contributor System: PowerChart ; Last Updated: 07/11/2017 7:03 EDT ; Life Cycle Date: 07/11/2017 ; Life Cycle Status: Active ; Vocabulary: SNOMED CT Diagnoses(Active) Foreign body in throat Date: 03/29/2021 ; Diagnosis Type: Reason For Visit ; Confirmation: Complaint of ; Clinical Dx: Foreign body in throat ; Classification: Medical ; Clinical Service: Non-Specified ; Code: PNED ; Probability: 0 ; Diagnosis Code: [id number] ED Height and Weight Height Source : Stated Height Entry Format : Alfred Height, Feet : 5 ft(Converted to: 152 cm, 60 Inch) Height, Inches : 8 Inch(Converted to: 0 ft 8 Inch, 20.32 cm) Clinical Height : 172.72 cm Weight Source, ED : Critical estimated dosing weight Weight Entry Format : Alfred Weight, Pounds : 200 lb Clinical Dosing Weight : 90.91 kg Body Surface Area (BSA) : 2.05 m2 Body Mass Index : 30.5 kg/m2 (HI) [place] Body Weight (IBW) : 63.45 kg JAMEEL RAYO RN - 03/29/2021 21:48 EDT documented in this encounter Plan of Treatment Not on file documented as of this encounter Visit Diagnoses Not on filedocumented in this encounter
--- OUTSIDE RECORDS SUMMARY | 2025-07-15 08:04 | XMS_ITS | Encounter Summary ---
Author Organization [employer] ([place], [place], [place], [place]) Address [address] [place] [address] Care Team Providers Care Pretzel Twisting Machine Operator Name Role Phone Unavailable Primary Care Provider Unavailabl e Encounter Details Date Type Department Care Team (Late st Contact Info) Description 03/30/2021 Transcribed Document [facility] [place] [facility] [place] [address] ProviderCarlos MD [address] [place] [address] Social History Tobacco Use Types Packs/Day Years Used Date Smoking Tobacco: Never Assessed Comments Unknown Sex and Gender Information Value Date Recorded Sex Assigned at Not on file Legal Sex Female 6:05 PM CDT Gender Identity Not on file Sexual Orientation Not on file documented as of this encounter Miscellaneous Notes * Cerner Conversion Note - Carlos Valerio MD - 03/30/2021 12:40 AM CDT Patient: BENY TY Age: 55 Years Sex: Female : 1965 Chief Complaint pt reports ate some country ham at 2pm and its stuck in her throat. History of Present Illness (Consult = 10/30//01/31 descriptors) location, quality, severity, duration, timing, context, modifiers, associated signs/symptoms: 55 year old woman with history of GERD and dysphagia presented to ED with food impaction in the mid esophagus. Last EGD was done about 4 years ago. Denied abnormal weight loss, hematemesis or melena. She had the food stuck early today, unable to swallow saliva since then. Complained of mid chest discomfort due to it. Currently denied chest pain or dyspnea, or abdominal pain. Review of Systems (Consult = 0//2/08/08 items) As stated in HPI, the rest of the 10 point review of system was unremarkable. Physical Exam (Consult = 1/6//9x2/9x2) Vitals & Measurements T: 36.6 ??C HR: 100(Monitored) RR: 17 BP: 147/63 SpO2: 92% HT: 172.72 cm WT: 90.91 kg BMI: 30.5 Alert and oriented x 3. NAD, pleasant. HEENT normal cephalic atraumatic. Oropharynx watery no blood or lesion NECK supple, no JVD or LAD bilaterally. CHEST regular regular no murmur or gallop LUNGS Wet rhonchi sound but no wheezing or rales. ABDOMEN obese, nontender, nondistended, normal bowel sound, no mass. No organomegaly. EXT no edema or cyanosis. NEURO grossly nonfocal. appropriate. Assessment/Plan FOR DIAGNOSIS: (10/30//12/31 points) N+W/U = 4; New = 3; Worsen = 2; Stable = 1; Improved = 1; Self-limited = 1 Esophageal foreign body T18.108A EGD with conscious sedation is indicated. The risks explained to patient. She wants to proceed as soon as possible. All questions are answered. Foreign body in throat [id number] Orders: ondansetron, 4 mg, IV Push, Inj, Q6H, PRN for Nausea, Routine, Start 03/30/21 1:07:00 EDT, 03/30/21 1:07:00 EDT Coronavirus 2019 Novel [facility] [place] NPO (immediate) Peripheral IV Insertion Verify Patient Consent Obtained Allergies erythromycin penicillin Medications Inpatient Zofran, 4 mg= 2 mL, IV Push, Q6H, PRN Home ALPRAZolam 0.25 mg oral tablet, 0.25 mg= 1 Tab, Oral, TID, PRN buPROPion 150 mg/12 hours (SR) oral tablet, extended release, 150 mg= 1 Tab, Oral, BID fluoxetine 20 mg oral capsule, 20 mg= 1 Cap, Oral, Daily pantoprazole 40 mg oral delayed release tablet, 40 mg= 1 Tab, Oral, Daily Provera 10 mg oral tablet, Oral, Daily Problem List/Past Medical History Ongoing Acid reflux Acute low back pain Anxiety Arthritis Depression Migraines Historical No qualifying data Procedure/Surgical History appy, joann, Colonoscopy, cyst removed from ovary, cystoscope, D&C, egd, wisdom. Social History Alcohol Alcohol Use History Yes. Alcohol Use Frequency Rarely. Home/Environment Living situation: Home/Independent. Nutrition/Health Caffeine intake amount: 4. Substance Abuse Drug Use Hx: No. Tobacco Smoking Status Current every day smoker. Five or more cigarettes per day Smoking Frequency Within Last 30 Days. Use in Last 12 Months: Cigarettes. Family History Family history of colon cancer. Lab Results MARCH 29 22:30 142 109 10 / 92 3.9 28 0.70 \ MARCH 29 22:30 \ 14.0 / 9.7 356 / 43.3 \ Diagnostic Results None. documented in this encounter Plan of Treatment Not on file documented as of this encounter Visit Diagnoses Not on filedocumented in this encounter
== END 2025-07-15 23:59 | disposition home or self-care (01) ==
LOC: RAD 08:01
PROVIDERS: PCP Nurse Practitioner Family; Visit Provider Nurse Practitioner Family
DX: Z12.31 Encounter for screening mammogram for malignant neoplasm of breast (principal); R92.333 Mammographic heterogeneous density, bilateral breasts
CPT/HCPCS: 77063; 77067

== ENCOUNTER 2025-07-20 14:40 | Outpatient (CLI) | payer OTHER, SELFPAY ==
--- OUTSIDE RECORDS SUMMARY | 2025-07-21 09:50 | XMS_ITS | Encounter Summary ---
Author Organization [employer] ([place], [place], [place], [place]) Address [address] [place] [address] Care Team Providers Care Nailing Machine Feeder Name Role Phone Unavailable Primary Care Provider Unavailabl e Encounter Details Date Type Department Care Team (Late st Contact Info) Description 03/30/2021 Transcribed Document [facility] [place] [facility] [place] [address] ProviderCarlos MD [facility] [place] [address] Social History Tobacco Use Types [...] 1:47 EDT by Sybil Esteban NON EMP swimming coach or instructor Process Patient Disposition : Discharge Personal Belongings [...]
--- OUTSIDE RECORDS SUMMARY | 2025-07-21 09:50 | XMS_ITS | Clinical Summary ---
Author Organization [employer] ([place], [place], [place], [place]) Address [address] [place] [address] Care Team Providers Care Telesales Supervisor Name Role Phone Unavailable Primary Care [...]
--- OUTSIDE RECORDS SUMMARY | 2025-07-21 09:50 | XMS_ITS | Encounter Summary ---
Author Organization [employer] ([place], [place], [place], [place]) Address [address] [place] [address] Care Team Providers Care Histologic Technician Name Role Phone Unavailable Primary Care Provider Unavailabl e Encounter Details Date Type Department Care Team (Late st Contact Info) Description 03/30/2021 Transcribed Document [facility] Family Medicine [facility] [place] [address] ProviderCarlos MD [address] [place] [address] Social History Tobacco Use Types Packs/Day [...] BENY TY/Sex: 1965 Female Med Rec #: [id number] Physician: CARLI ALLEN MD-EMR Financial #: [id number] Pt. Type: E Room/Bed: / Admit/Disch: 03/29/21 21:45:00 - Institution: [facility] Endo - Case Attendance Entry 1 Entry 2 Entry 3 Case Attendee ANDREW MORSE MD Johnson, Kaitlyn G, RN Samson Salgado, Unpaid Intern Role Performed Surgeon/Proceduralist, Nurse Quality, First Scrub, First First Time In 03/30/21 [...] Endo - Case Attendance Audit 03/30/21 00:36:30 Vocational Nursing Instructor: [id number] Modifier: [id number] <*> Time In 03/30/21 23:55:00 2 <*> Time Out 03/30/21 00:42:00 2 <*> Procedure Esophagogastroduodenoscopy, Esophageal Dilatation 3 <*> Time In 03/30/21 23:55:00 3 <*> Procedure Esophagogastroduodenoscopy, Esophageal Dilatation 03/30/21 00:33:33 Vocational Nursing Instructor: [id number] Modifier: [id number] 1 <*> Procedure Esophagogastroduodenoscopy 2 <*> Procedure Esophagogastroduodenoscopy 3 <*> Procedure Esophagogastroduodenoscopy 03/30/21 00:33:20 Vocational Nursing Instructor: [id number] Modifier: [id number] 1 <*> Time In 03/30/21 00:22:00 1 <+> Time Out 1 <*> Procedure Esophagogastroduodenoscopy 2 <+> Time Out 2 <*> Procedure Esophagogastroduodenoscopy 3 <+> Time Out 3 <*> Procedure Esophagogastroduodenoscopy 03/30/21 00:18:10 Vocational Nursing Instructor: [id number] Modifier: [id number] 1 <+> Time In 1 <*> Procedure [...] Endo - Case times Audit 03/30/21 00:36:42 Vocational Nursing Instructor: [id number] Modifier: [id number] <*> In Room Time 03/29/21 23:55:00 1 <*> Start Time 03/29/21 00:24:00 03/30/21 00:33:06 Vocational Nursing Instructor: [id number] Modifier: [id number] <+> 1 Out Room Time <+> 1 [...] [facility] Endo - General Case [employer] French Teacher 1 Case Information OR Out of Department [...] Endo - Patient Positioning Audit 03/30/21 00:33:34 Vocational Nursing Instructor: [id number] Modifier: [id number] 1 <*> Procedure Esophagogastroduodenoscopy [facility] [...] Endo - Sign Out Audit 03/30/21 00:35:36 Vocational Nursing Instructor: [id number] Modifier: [id number] <+> 1 RN Sign Out Signature Date/Time [...] Endo - Surgical Procedures Audit 03/30/21 00:33:32 Vocational Nursing Instructor: [id number] Modifier: [id number] <+> 1 Start <+> 1 Stop <+> [...] RN 03/30/21 00:36 Electronically signed by Aaron [facility] Conversion Technician Inventory Specialist Cerner at 02/13/2023 2:01 PM CDT documented in this encounter Plan of Treatment Not on file documented as of this encounter Visit Diagnoses Not on filedocumented in this encounter
--- OUTSIDE RECORDS SUMMARY | 2025-07-21 09:50 | XMS_ITS | Encounter Summary ---
Author Organization [employer] ([place], [place], [place], [place]) Address [address] [place] [address] Care Team Providers Care Linux Admin Engineer Name Role Phone Unavailable Primary Care Provider Unavailabl e Encounter Details Date Type Department Care Team (Late st Contact Info) Description 03/30/2021 Transcribed Document [facility] [place] [address] ProviderCarlos MD [address] [place] [address] Social History Tobacco Use Types Packs/Day [...]
--- OUTSIDE RECORDS SUMMARY | 2025-07-21 09:50 | XMS_ITS | Clinical Summary ---
Author Organization [facility] Address [address] [place] [address] Care Team Providers Care Seasonal Package Handler Name Role Phone Pcp, None MD Primary Care Provider [phone] Allergies Active Allergy Reactions Criticality Noted Date [...] patient's age to complete this topic Insurance [place] [id number] [facility] TRANSITION H[place] [address] [place] [id number] Care Teams Seasonal Package Handler Relationship Specialty Start Date End Date Pcp, None, No Address [place], [place] PCP - General Internal Medicine 12/14/24
--- OUTSIDE RECORDS SUMMARY | 2025-07-21 09:50 | XMS_ITS | Encounter Summary ---
Author Organization [employer] ([place], [place], [place], [place]) Address [address] [place] [address] Care Team Providers Care Lamp Wirer Name Role Phone Unavailable Primary Care Provider Unavailabl e Encounter Details Date Type Department Care Team (Late st Contact Info) Description 03/29/2021 Transcribed Document [facility] [place] [facility] [place] [address] ProviderCarlos MD [address] [place] [address] Social History Tobacco Use Types Packs/Day [...] : 3 - Urgent Tracking Group : [facility] ED JAMEEL RAYO RN - 03/29/2021 [...] 21:53:10 EDT) Problems(Active) Acid reflux (SNOMED CT :6003264317 ) Name of Problem: Acid reflux ; Recorder: YAO BLANCO RN; Confirmation: Confirmed ; Classification: Medical ; Code: 0157732223 ; Contributor System: Z[employer] AestheticsChart ; Last Updated: 07/11/2017 7:02 EDT ; Life Cycle Date: 07/11/2017 ; Life Cycle Status: Active ; Vocabulary: SNOMED CT Acute low back pain (SNOMED CT :556799892 ) Name of Problem: Acute low back pain ; Recorder: CELSO JONES RN; Confirmation: Confirmed ; Classification: Medical ; Code: 541926363 ; Contributor System: PowerChart ; Last Updated: 03/07/2017 11:42 EDT ; Life Cycle Date: 03/07/2017 ; Life Cycle Status: Active ; Vocabulary: SNOMED CT Anxiety (SNOMED CT :3373369969 ) Name of Problem: Anxiety ; Recorder: MYRA JONES PA; Confirmation: Confirmed ; Classification: Medical ; Code: 0016785297 ; Contributor System: PowerChart ; Last Updated: 04/30/2017 18:03 EDT ; Life Cycle Date: 04/30/2017 ; Life Cycle Status: Active ; Responsible Provider: MYRA JONES PA; Vocabulary: SNOMED CT Arthritis (SNOMED CT :5775877926 ) Name of Problem: Arthritis ; Recorder: YAO BLANCO RN; Confirmation: Confirmed ; Classification: Medical ; Code: 9195477144 ; Contributor System: Zeltiq AestheticsChart ; Last Updated: 07/11/2017 7:03 EDT ; Life Cycle Date: 07/11/2017 ; Life Cycle Status: Active ; Vocabulary: SNOMED CT Depression (SNOMED CT :9096810728 ) Name of Problem: Depression ; Recorder: CELSO JONES RN; Confirmation: Confirmed ; Classification: Medical ; Code: 3465997653 ; Contributor System: PowerChart ; Last Updated: 03/07/2017 11:41 EDT ; Life Cycle Date: 03/07/2017 ; Life Cycle Status: Active ; Vocabulary: SNOMED CT Migraines (SNOMED CT :90728718 ) Name of Problem: Migraines ; Recorder: YAO BLANCO RN; Confirmation: Confirmed ; Classification: Medical ; Code: 82507379 ; Contributor System: PowerChart ; Last Updated: [...] PNED ; Probability: 0 ; Diagnosis Code: [id number] ED Height and Weight Height Source : Stated Height Entry Format : [place] Height, Feet : 5 ft(Converted to: 152 cm, 60 Inch) Height, Inches : 8 Inch(Converted to: 0 ft 8 Inch, 20.32 cm) Clinical Height : 172.72 cm Weight Source, ED : Critical estimated dosing weight Weight Entry Format : [place] Weight, Pounds : 200 lb Clinical Dosing Weight : 90.91 kg Body Surface Area (BSA) : 2.05 m2 Body Mass Index : 30.5 kg/m2 (HI) [place] Body Weight (IBW) : 63.45 kg JAMEEL RAYO RN - 03/29/2021 21:48 EDT documented in this encounter Plan of Treatment Not on file documented as of this encounter Visit Diagnoses Not on filedocumented in this encounter
--- OUTSIDE RECORDS SUMMARY | 2025-07-21 09:50 | XMS_ITS | Encounter Summary ---
Author Organization [employer] ([place], [place], [place], [place]) Address [address] [place] [address] Care Team Providers Care Branch Logistics Supervisor Name Role Phone Unavailable Primary Care Provider Unavailabl e Encounter Details Date Type Department Care Team (Late st Contact Info) Description 03/30/2021 Transcribed Document [facility] [place] [facility] [place] [address] ProviderCarlos MD [address] [place] [address] Social History Tobacco Use Types [...] Valerio MD - 03/30/2021 1:[address] [facility] [place] [address] BENY TY APRIL :1965 Visit [...] Within 1 to 2 weeks Where: [address] [facility] [address] [place] [address]- Business (1) Follow Up with ROSINA LIMA When Within 2 to 3 days Where: [address] [place] [address]- Business (1) Follow Up with Follow up [...] range between ( 0.0 and 7.0 ) [place] #: 0.78 K/uL -- Normal range between ( 0.16 and 1.00 ) Eos #: 0.36 x10(3)/uL -- Normal range between ( 0.00 and 0.80 ) [place] %: 8.1 % -- Normal range between [...] after the procedure. General instructions ??? Take nexw-rmo-losvmgg and prescription medicines only as told by [...] provider. Document Revised: 08/29/2019 Document Reviewed: 08/29/2019 [employer] Patient Education ?? 2020 HCI. Emergency Awareness and Preventative Care STROKE is [...] Assistance with quitting is available by contacting 7-795-TWXX-NOW. This is a free resource providing counseling, [...] was given the opportunity to ask questions. Patient/Editor & Co Founder Name: Patient/Editor & Co Founder Signature: Relationship to Patient: Clinician/Hospital Editor & Co Founder Signature: Please Provide a Telephone Number Where You Can Be Reached: Is it Permissible To Leave a Message? Date: documented in this encounter Plan of Treatment Not on file documented as of this encounter Visit Diagnoses Not on filedocumented in this encounter
--- OUTSIDE RECORDS SUMMARY | 2025-07-21 09:50 | XMS_ITS | Referral Summary ---
Author Organization [facility] Address [address] [place] [address] Care Team Providers Care Escrow Agent Name Role Phone Pcp, None MD Primary Care Provider [phone] Allergies Active Allergy Reactions Criticality Noted Date [...] Plan of Treatment Not on file Insurance [facility] TRANSITION HMO [address] Care Teams Escrow Agent Relationship Specialty Start Date End Date Pcp, None, No Address [place], [place] PCP - General Internal Medicine 12/14/24
--- OUTSIDE RECORDS SUMMARY | 2025-07-21 09:50 | XMS_ITS | Clinical Summary ---
Author Organization JOLENE BARKERZANE OD Address [facility] [place] [address] Phone Care Team Providers Care Project Associate Name Role Phone Unavailable Primary Care Provider [...] patient's age to complete this topic [facility] [place] [address] [employer] COMP on file [address] [address] [employer] on file [employer] [place] * Guarantor: BENY TY Account Type Relation to Patient Date of Phone Billing Address [place] [employer] 1965 [address] [place] [id number] [employer] [facility] [place]
--- OUTSIDE RECORDS SUMMARY | 2025-07-21 09:50 | XMS_ITS | Encounter Summary ---
Author Organization [employer] ([place], [place], [place], [place]) Address [address] [place] [address] Care Team Providers Care Ferryboat Deckhand Name Role Phone Unavailable Primary Care Provider Unavailabl e Encounter Details Date Type Department Care Team (Late st Contact Info) Description 03/30/2021 Transcribed Document [facility] [place] Medicine [facility] [place] [address] ProviderCarlos MD [facility] [place] [address] Social History Tobacco Use Types [...]
--- OUTSIDE RECORDS SUMMARY | 2025-07-21 09:50 | XMS_ITS | Patient Health Record ---
Author Organization [facility] Address [address] [place] [address] Care Team Providers Care Cash Van Salesperson Name Role Phone Prieto Guillaume Primary Care [...] Coverage Start Date Coverage End Date [facility] [address] [place] [address] [id number] BENY TO Self - patient is the insured Medical (General) History Medical History History ICD Code Anxiety/Depression PTSD Osteoarthritis Surgical History Surgery Date(Month/Year) hafsa simmons D+C 2016 Hospitalization History Reason Date(Month/Year) childbirth see above
--- OUTSIDE RECORDS SUMMARY | 2025-07-21 09:50 | XMS_ITS | Encounter Summary ---
Author Organization [employer] ([place], [place], [place], [place]) Address [address] [place] [address] Care Team Providers Care Weapons Officer Naval Activity Name Role Phone Unavailable Primary Care Provider Unavailabl e Encounter Details Date Type Department Care Team (Late st Contact Info) Description 03/29/2021 Transcribed Document [facility] [place] [facility] [place] [address] ProviderCarlos MD [address] [place] [address] Social History Tobacco Use Types [...] Historical ProviderMD - 03/29/2021 9:45 PM CDT [place] Suicide Severity Rating Scale (C-SSRS) Entered On: 03/29/2021 22:22 EDT Performed On: 03/29/2021 22:21 EDT by PETRA MITCHELL RN-PATIENT CARE BEDSIDE NON-EXEMPT [place] Suicide Severity Rating Scale (C-SSRS) CSSRS Past [...]
--- OUTSIDE RECORDS SUMMARY | 2025-07-21 09:50 | XMS_ITS | Encounter Summary ---
Author Organization [employer] ([place], [place], [place], [place]) Address [address] [place] [address] Care Team Providers Care Termite Control Representative Name Role Phone Unavailable Primary Care Provider Unavailabl e Encounter Details Date Type Department Care Team (Late st Contact Info) Description 03/30/2021 Transcribed Document [facility] [place] [facility] [place] [address] ProviderCarlos MD [address] [place] [address] Social History Tobacco Use Types [...] questions are answered. Foreign body in throat [id number] Orders: ondansetron, 4 mg, IV Push, Inj, Q6H, PRN for Nausea, Routine, Start 03/30/21 1:07:00 EDT, 03/30/21 1:07:00 EDT Coronavirus 2019 Novel [facility] [place] Nursing Order NPO (immediate) Peripheral IV Insertion [...]
--- OUTSIDE RECORDS SUMMARY | 2025-07-21 09:50 | XMS_ITS | Clinical Summary ---
Author Organization [facility] Address [address] [place] [id number] Care Team Providers Care Furniture Packer Name Role Phone Miladis Guillaume MD Primary [...] ANNUAL PHYSICAL 05/31/2019 HEPATITIS C SCREENING 05/31/2019 INFLUENZA VACCINE 05/30/2025 Insurance [id number] EID RACH EIDMAGDA [id number] [facility] PATHWAY HMO Care Teams Furniture Packer Relationship Specialty Start Date End Date Miladis Guillaume MD [address] [place] [address] PCP - General Internal Medicine 05/31/19
--- OUTSIDE RECORDS SUMMARY | 2025-07-21 09:50 | XMS_ITS | Encounter Summary ---
Author Organization [employer] ([place], [place], [place], [place]) Address [address] [place] [address] Care Team Providers Care Apprentice Instrument Technician Name Role Phone Unavailable Primary Care Provider Unavailabl e Encounter Details Date Type Department Care Team (Late st Contact Info) Description 03/29/2021 Transcribed Document [facility] [place] [facility] [place] [address] ProviderCarlos MD [address] [place] [address] Social History Tobacco Use Types [...] disease. Endocrine: no diabetes. Surgical history: Colonoscopy ([id number]). joann. wisdom. egd. appy. cystoscope. D&C. cyst [...] EDT Height Source Stated Height Entry Format [place] Height/Length, PALESTINIAN (ft) 5 ft Height/Length PALESTINIAN 8 Inch CLINICALHEIGHT 172.72 cm [place] Body Weight 63.45 kg Weight Source, ED Critical estimated dosing weight Weight Entry Format [place] Weight French lb 200 lb CLINICALWEIGHT 90.91 kg Body [...] Triage: ED C-SSRS: ED Clinical Reconciliation: ED hair weaver: . Electrocardiogram: Time 03/29/2021 22:41:00, rate 95, normal sinus rhythm, No ST changes, no ectopy, normal MN & QRS intervals, EP Interp. Results review: [...] % 30.1 % Lymph # 2.91 x10(3)/uL [place] % 8.1 % Greenlee # 0.78 K/uL Eos % 3.7 % [...]
--- OUTSIDE RECORDS SUMMARY | 2025-07-21 09:50 | XMS_ITS | Encounter Summary ---
Author Organization [email or web address] ([place], [place], [place], [place]) Address [address] [place] [address] Care Team Providers Care Pathology Tech Name Role Phone Unavailable Primary Care Provider Unavailabl e Encounter Details Date Type Department Care Team (Late st Contact Info) Description 03/30/2021 Transcribed Document [facility] [place] [facility] [place] [address] ProviderCarlos MD [address] [place] [address] Social History Tobacco Use Types Packs/Day [...] Carlos ProviderMD - 03/30/2021 1:31 AM CDT [address] [place] [address] PERSON INFORMATION Name BENY TY Age 55 Years 1965 Sex Female Language Slovak PCP ROSINA LIMA (REF)MD-INT Marital Status Single Med Service Emergency Medicine Acct# Arrival 03/29/2021 21:45:00 Visit Reason Chest pain; Foreign body in throat; MEDICAL SCREEN Acuity 3 - Urgent LOS 000 03:46 Depart Date: 00:00 AM Address: [place] [id number] Comment: PROVIDER INFORMATION Provider Role Assigned Unassigned JENNIFER MOREJON MD-EMR ED Physician 03/29/2021 21:53:33 PETRA MITCHELL, RN-PATIENT CARE BEDSIDE NON-EXEMPT ED Nurse 03/29/2021 22:01:03 Sybil Esteban NON EMP AIRCRAFT LIFE SUPPORT FITTER Nurse 03/29/2021 23:03:52 DIAGNOSIS Esophageal foreign body [...] Follow up: With: Address: When: March [address] [facility] [place] [address] Business (1) Within 1 to 2 weeks With: Address: When: ROSINA LIMA [address] [place] [address] Business (1) Within 2 to 3 days With: Address: When: Follow up with primary care provider Within 2 to 3 days Comment: documented in this encounter Plan of Treatment Not on file documented as of this encounter Visit Diagnoses Not on filedocumented in this encounter
--- OUTSIDE RECORDS SUMMARY | 2025-07-21 09:50 | XMS_ITS | Encounter Summary ---
Author Organization [employer] ([place], [place], [place], [place]) Address [address] [place] [address] Care Team Providers Care Auto Garage Mechanic Name Role Phone Unavailable Primary Care Provider Unavailabl e Encounter Details Date Type Department Care Team (Late st Contact Info) Description 03/29/2021 Transcribed Document [facility] [place] [address] [place] [address] ProviderCarlos MD [facility] [place] [address] Social History Tobacco Use Types [...]
--- OUTSIDE RECORDS SUMMARY | 2025-07-21 09:50 | XMS_ITS | Encounter Summary ---
Author Organization [employer] ([place], [place], [place], [place]) Address [address] [place] [address] Care Team Providers Care Replanter Name Role Phone Unavailable Primary Care Provider Unavailabl e Encounter Details Date Type Department Care Team (Late st Contact Info) Description 03/29/2021 Transcribed Document [facility] [place] [facility] [address] ProviderCarlos MD [facility] [place] [address] Social History Tobacco Use Types [...] Communication Barrier : None Primary Language : Chinese Any Spiritual/Cultural Needs or Requests : No [...] Rhythm : Regular Nail Bed Color : [place] Chest Pain : No PETRA MITCHELL RN-PATIENT [...] 03/29/2021 22:21 EDT Electronically signed by Aaron, [facility] Conversion Contract Negotiation Specialist Cerner at 02/13/2023 1:51 PM CDT documented in this encounter Plan of Treatment Not on file documented as of this encounter Visit Diagnoses Not on filedocumented in this encounter
--- OUTSIDE RECORDS SUMMARY | 2025-07-21 09:50 | XMS_ITS | Encounter Summary ---
Author Organization [employer] ([place], [place], [place], [place]) Address [address] [place] [address] Care Team Providers Care Informatics Physician Liaison Name Role Phone Unavailable Primary Care Provider Unavailabl e Encounter Details Date Type Department Care Team (Late st Contact Info) Description 03/30/2021 Transcribed Document [facility] [place] [facility] [place] [address] ProviderCarlos MD [facility] [place] [address] Social History Tobacco Use Types [...] AM CDT Electronically signed by Aaron [facility] Conversion Handle Sewer Cerner at 02/13/2023 1:52 PM CDT documented in this encounter Plan of Treatment Not on file documented as of this encounter Visit Diagnoses Not on filedocumented in this encounter
--- OUTSIDE RECORDS SUMMARY | 2025-07-21 09:50 | XMS_ITS | Referral Summary ---
Author Organization [employer] ([place], [place], [place], [place]) Address [address] [place] [address] Care Team Providers Care Global Director Air And Climate Change Name Role Phone Unavailable Primary Care Provider [...]
== END 2025-07-20 23:59 | disposition home or self-care (01) ==
LOC: LAB.DROPOF 07-21 09:32
PROVIDERS: PCP Student in an Organized Health Care Education/Training Program; Visit Provider Student in an Organized Health Care Education/Training Program
DX: N39.0 Urinary tract infection, site not specified (principal)
CPT/HCPCS: 87086